=== PATIENT | male | born 1930 | race Hispanic/Latino ===

== ENCOUNTER → 2018-02-13 | Day surgery (SDC) | payer OTHER ==
[~2018-02-13] VITALS: Ht 167.6 cm; Wt 70.8 kg
[~2018-02-13] MED LIST: AMLODIPINE BESYL5 MG PO; ASPIRIN EC81 MG PO; BACTRIM DS TAB1 EACH PO; CEFAZOLIN SOD 1 GM VIAL ONE; DORZOLAMIDE HCL10 ML OP; FENTANYL CITRATE/PF 100MCG/2 ML INJ ONE; FERROUS SULFAT325 MG PO; LATANOPROST2.5 ML OP; LIDOCAINE HCL 2% LOCAL 20 ML VIAL ONE; LORATADINE10 MG PO; LOSARTAN POTASS25 MG PO; METFORMIN HCL500 MG PO; MIDAZOLAM HCL 2 MG/2 ML VIAL ONE; MYRBETRIQ50 MG PO; OMEPRAZOLE40 MG PO; SODIUM CHLORIDE 0.9% 500ML 1,000 ML ONE; SODIUM CHLORIDE 0.9% 50ML 50 ML ONE; TAMSULOSIN HCL0.4 MG PO
[2018-02-13 12:49] VITALS: BP 156/74
[2018-02-13 12:57] VITALS: BP 142/77
[2018-02-13 13:05] VITALS: BP 131/75
[2018-02-13 13:15] VITALS: BP_SYST 134; BP_SYST 150; BP_DIAS 71; BP_DIAS 74
--- NOTE | 2018-02-13 14:28 | Diagnostic Imaging Report ---
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 The patient's heart rate and pulse oximetry were continuously monitored by the interventional radiology nurse. Blood pressure was monitored at 5 minute intervals. Total sedation time: 30 minutes Additional Medications: Lidocaine 1% for local anesthesia, cefazolin 1 g intravenous Fluoroscopy time: 1.5 minutes Dose-area Product: 187.4 cGycm2. Contrast used: 20 cc Isovue-300 Estimated blood loss: Less than 10 cc Specimens: None Implants: 18 Scottish balloon retention hoopa-tip bladder catheter Blood products administered: None Condition at completion of procedure: Stable Disposition: Catheter lab holding area DISCUSSION: Informed consent was obtained and documented in the medical record after discussion of risks and benefits. The patient was placed in the supine position on the angiographic table and the lower abdomen was prepped and draped in the standard sterile fashion. Sterile saline was infused in a retrograde fashion through the indwelling Garcia catheter to achieve adequate bladder distention. A suitable percutaneous approach to the bladder was identified by sonography and 1% lidocaine was infiltrated into the skin and subcutaneous tissues for local anesthesia. Then under continuous sonographic guidance, an 18-gauge singlewall needle was used to access the urinary bladder by a midline approach. A permanent sonographic image was stored in the medical record. A 0.0 3 5-in. Amplatz Super Stiff wire was then advanced through the needle and coiled within the bladder under fluoroscopic guidance. The needle was removed over the wire and the tract was serially dilated, ultimately allowing a 22 Scottish peel-away sheath to be advanced over the wire and into the urinary bladder under fluoroscopic guidance. The dilator of the peel-away sheath was removed and an 18 Scottish [place] tip balloon retention bladder catheter was advanced over the wire and through the peel-away sheath, which was then broken and discarded. The wire was removed and the retention balloon was inflated with 10 cc sterile saline per frame cleaner guidelines. The catheter was retracted to appose the retention balloon with the anterior bladder wall. Injection of dilute contrast material confirmed appropriate positioning. The catheter was then flushed copiously with sterile saline and connected to gravity drainage. The catheter was secured to the skin with nonrestorable suture and a sterile dressing was applied. The patient tolerated the procedure well without immediate complication. The indwelling Garcia catheter was then removed by nursing staff. FINDINGS: Distended urinary bladder with Garcia catheter in position. IMPRESSION: Successful placement of a suprapubic bladder catheter (18 Scottish, balloon retention Hamilton tip) under sonographic and fluoroscopic guidance followed by removal of indwelling Garcia catheter.. Signed by: Dr. Alex Moctezuma M.D. on 02/13/2018 2:24 PM
--- NOTE | 2018-03-01 10:15 | Diagnostic Imaging Report ---
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 The patient's heart rate and pulse oximetry were continuously monitored by the interventional radiology nurse. Blood pressure was monitored at 5 minute intervals. Total sedation time: 30 minutes Additional Medications: Lidocaine 1% for local anesthesia, cefazolin 1 g intravenous Fluoroscopy time: 1.5 minutes Dose-area Product: 187.4 cGycm2. Contrast used: 20 cc Isovue-300 Estimated blood loss: Less than 10 cc Specimens: None Implants: 18 [place]an balloon retention [place]well-tip bladder catheter Blood products administered: None Condition at completion of procedure: Stable Disposition: Catheter lab holding area DISCUSSION: Informed consent was obtained and documented in the medical record after discussion of risks and benefits. The patient was placed in the supine position on the angiographic table and the lower abdomen was prepped and draped in the standard sterile fashion. Sterile saline was infused in a retrograde fashion through the indwelling Garcia catheter to achieve adequate bladder distention. A suitable percutaneous approach to the bladder was identified by sonography and 1% lidocaine was infiltrated into the skin and subcutaneous tissues for local anesthesia. Then under continuous sonographic guidance, an 18-gauge singlewall needle was used to access the urinary bladder by a midline approach. A permanent sonographic image was stored in the medical record. A 0.0 3 5-in. Amplatz Super Stiff wire was then advanced through the needle and coiled within the bladder under fluoroscopic guidance. The needle was removed over the wire and the tract was serially dilated, ultimately allowing a 22 [place]an peel-away sheath to be advanced over the wire and into the urinary bladder under fluoroscopic guidance. The dilator of the peel-away sheath was removed and an 18 [place] tip balloon retention bladder catheter was advanced over the wire and through the peel-away sheath, which was then broken and discarded. The wire was removed and the retention balloon was inflated with 10 cc sterile saline per beverage host guidelines. The catheter was retracted to appose the retention balloon with the anterior bladder wall. Injection of dilute contrast material confirmed appropriate positioning. The catheter was then flushed copiously with sterile saline and connected to gravity drainage. The catheter was secured to the skin with nonrestorable suture and a sterile dressing was applied. The patient tolerated the procedure well without immediate complication. The indwelling Garcia catheter was then removed by nursing staff. FINDINGS: Distended urinary bladder with Garcia catheter in position. IMPRESSION: Successful placement of a suprapubic bladder catheter (18 [place]an, balloon retention [place] tip) under sonographic and fluoroscopic guidance followed by removal of indwelling Garcia catheter.. Signed by: Dr. Alex Moctezuma M.D. on 02/13/2018 2:24 PM
--- OUTSIDE RECORDS SUMMARY | 2018-03-14 06:08 | XMS REPORT | Summary of Care ---
Author Author [facility] Organization [facility] Address Unknown Phone Unavailable Encounter LYNETTE Wright(NEO) [id number] Date(s): 03/25/15 - 03/25/15 [facility] [address] [place] [address] Discharge Disposition: Home Attending Physician: Henok Hawk DO Referring Physician: Henok Hawk DO Vital Signs No data available for this section Problem List Condition Effective Dates Status Health Status Informant BPH - Benign Active prostatic hypertrophy(Confirme d) Diabetes Active mellitus(Confirmed) Glaucoma(Confirmed) Active Hyperlipidemia(Confi Active rmed) Hypertension(Confirm Active ed) Melanoma Active foot(Confirmed) Reflux(Confirmed) Active Allergies, Adverse Reactions, Alerts Substance Reaction Severity Status NKDA Active Medications ceFAZolin 2 gm, 50 mL, Route: IVPB, Drug form: INJ, PRE OP, Start date: 03/27/15 5:00:00, Duration: 1 day, Stop date: 03/28/15 4:59:00 Start Date: 03/27/15 Stop Date: 03/28/15 Status: Ordered Ofirmev 1,000 mg, 100 mL, Route: IV, Drug form: INJ, PRE OP, Start date: 03/27/15 5:00: 00, Duration: 1 day, Stop date: 03/28/15 4:59:00 Notes: Infuse over 15 minutesDo not exceed 4gm/day of acetaminophen MEDICATION WASTE Product Size: 1000 mgProduct Wasted: ___ mg Start Date: 03/27/15 Stop Date: 03/28/15 Status: Ordered Results No data available for this section Immunizations No data available for this section Procedures Procedure Date Related Diagnosis Body Site Operation Social History Social History Type Response Smoking Status Never smoker; Exposure to Tobacco Smoke None; Cigarette Smoking Last 365 Days No; Reg Smoking Cessation Counseling No Assessment and Plan No data available for this section
--- OUTSIDE RECORDS SUMMARY | 2018-03-14 06:08 | XMS REPORT | Summary of Care ---
Author Author [facility] Outpatient Imaging [facility] Address Unknown Phone Unavailable Encounter HQ Encntr_alicandy(FIN) [id number] Date(s): 02/05/15 - 02/05/15 [facility] [address] [place] [phone] Discharge Disposition: Home Attending Physician: Redd Irwin MD Vital Signs No data available for this section Problem List No data available for this section Allergies, Adverse Reactions, Alerts Substance Reaction Severity Status NKDA Active Medications No data available for this section Results No data available for this section Immunizations No data available for this section Procedures No data available for this section Social History No data available for this section Assessment and Plan No data available for this section
--- OUTSIDE RECORDS SUMMARY | 2018-03-14 06:08 | XMS REPORT | Summary of Care ---
Author Author [facility] Organization [facility] Address Unknown Phone Unavailable Encounter [facility] Encntr_alicandy(NEO) [id number] Date(s): 01/20/15 - 01/20/15 [facility] [address] [place] [address]- [phone] Discharge Disposition: Home Attending Physician: Victoriano Elizalde MD Vital Signs No data available for [...]
--- OUTSIDE RECORDS SUMMARY | 2018-03-14 06:08 | XMS REPORT | Summary of Care ---
Author Author [facility] Organization [facility] Address Unknown Phone Unavailable Encounter LYNETTE Wright(NEO) [id number] Date(s): 03/26/15 - 03/30/15 [facility] [address] [employer] provided by [employer] [facility] [employer] [place] [address]- Discharge Disposition: Home Attending Physician: Henok Hawk DO Admitting Physician: Henok Hawk DO Referring Physician: Henok Hawk DO Vital Signs 1 2 3 Most recent to oldest [Reference Range]: 152.4 cm (03/17/15 2:16 PM) Height 1 2 3 Most recent to oldest [Reference Range]: 98.0 DegF (03/30/15 1:05 PM) 97.8 DegF (03/30/15 8:41 AM) 97.9 DegF (03/30/15 3:23 AM) Temperature Oral [96.4-99.1 DegF] 1 2 3 Most recent to oldest [Reference Range]: 167/68 mmHg *HI* (03/30/15 8:41 AM) 161/69 mmHg *HI* (03/30/15 3:23 AM) Blood Pressure [90-140/60-90 mmHg] 158 mmHg *HI* (03/30/15 1:05 PM) Systolic Blood Pressure [90-140 mmHg] 1 2 3 Most recent to oldest [Reference Range]: 74 mmHg (03/30/15 1:05 PM) Diastolic Blood Pressure [60-90 mmHg] 1 2 3 Most recent to oldest [Reference Range]: 18 BRMIN (03/30/15 1:05 PM) 20 BRMIN (03/30/15 8:41 AM) 18 BRMIN (03/30/15 3:23 AM) Respiratory Rate [14-20 BRMIN] 1 2 3 Most recent to oldest [Reference Range]: 81 bpm (03/30/15 1:05 PM) 61 bpm (03/30/15 8:41 AM) 60 bpm (03/30/15 3:23 AM) Peripheral Pulse Rate [60-100 bpm] 1 2 3 Most recent to oldest [Reference Range]: 73.636 kg (03/17/15 2:16 PM) Weight 1 2 3 Most recent to oldest [Reference Range]: 31.7 m2 (03/17/15 2:16 PM) Body Mass Index Problem List Condition Effective Dates Status Health Status Informant BPH - Benign Active prostatic hypertrophy(Confirme d) Diabetes Active mellitus(Confirmed) Glaucoma(Confirmed) Active Hyperlipidemia(Confi Active rmed) Hypertension(Confirm Active ed) Melanoma Active foot(Confirmed) Reflux(Confirmed) Active Allergies, Adverse Reactions, Alerts Substance Reaction Severity Status NKDA Active Medications acetaminophen-hydrocodone 325 mg-5 mg oral tablet 1 tab, Route: PO, Dosing Weight 73.636, kg, Q4H, PRN Pain Score 4-6, Start date : 03/26/15 11:55:00, Duration: 30 day, Stop date: 04/25/15 11:54:00 Start Date: 03/26/15 Stop Date: 03/26/15 Status: Discontinued bacitracin TOP, Daily, 0 Refill(s) Start Date: 03/17/15 Status: Ordered benzonatate 100 mg, 1 cap, Route: PO, Drug form: CAP, TID, Dosing Weight 73.636, kg, PRN Cough, Start date: 03/26/15 13:00:00, Duration: 30 day, Stop date: 04/25/15 11: 59:00 Notes: (Same As: Jerrod Lockhart)"Do Not Crush" Start Date: 03/26/15 Stop Date: 03/30/15 Status: Discontinued benzonatate 100 mg oral capsule 100 mg=1 cap, PO, TID, do not crush or chew, # 30 cap, 0 Refill(s) Special Instructions: do not crush or chew Start Date: 03/17/15 Stop Date: 03/27/15 Status: Ordered ceFAZolin 2 gm, 50 mL, Route: IVPB, Drug form: INJ, PRE OP, Start date: 03/26/15 2:00:00, Duration: 1 day, Stop date: 03/27/15 1:59:00 Start Date: 03/26/15 Stop Date: 03/26/15 Status: Deleted ceFAZolin 2 gm, 100 mL, Route: IVPB, Drug form: INJ, PRE OP, Start date: 03/26/15 6:00:00 , Duration: 1 day, Stop date: 03/27/15 5:59:00 Notes: Same as: Ancef Start Date: 03/26/15 Stop Date: 03/26/15 Status: Completed ciclopirox topical 0.77% cream 1 appl, TOP, BID, # 15 gm, 0 Refill(s) Start Date: 03/17/15 Stop Date: 04/14/15 Status: Ordered cyanocobalamin 100 microgram, 1 tab, Route: PO, Drug form: TAB, Daily, Dosing Weight 73.636, kg , Start date: 03/27/15 9:00:00, Duration: 30 day, Stop date: 04/25/15 9:00:00 Notes: (Same As: Vitamin B12) Start Date: 03/27/15 Stop Date: 03/30/15 Status: Discontinued Dextrose 50% Syringe 12.5 gm, 25 mL, Route: IVP, Drug Form: INJ, Dosing Weight 73.636, kg, PRN, PRN Blood Glucose Results, Start date: 03/26/15 12:04:00, Duration: 30 day, Stop date: 04/25/15 11:03:00 Start Date: 03/26/15 Stop Date: 03/30/15 Status: Discontinued Dextrose 50% Syringe 25 gm, 50 mL, Route: IVP, Drug Form: INJ, Dosing Weight 73.636, kg, PRN, PRN Blood Glucose Results, Start date: 03/26/15 12:04:00, Duration: 30 day, Stop date: 04/25/15 11:03:00 Start Date: 03/26/15 Stop Date: 03/30/15 Status: Discontinued docusate sodium 100 mg oral capsule 100 mg, 1 cap, Route: PO, Drug form: CAP, BID, Dosing Weight 73.636, kg, Start date: 03/26/15 17:00:00, Duration: 30 day, Stop date: 04/25/15 9:00:00 Notes: (Same as: Colace) (Do Not Crush) Start Date: 03/26/15 Stop Date: 03/30/15 Status: Discontinued dorzolamide-timolol ophthalmic BOTH EYES, BID, 0 Refill(s) Start Date: 03/17/15 Status: Ordered flumazenil 0.2 mg, Route: IVP, PRN, Dosing Weight 73.636, kg, PRN Benzodiazepine Reversal, Initial dose, Start date: 03/26/15 12:12:00, Duration: 30 day, Stop date: 11:11:00 Start Date: 03/26/15 Stop Date: 03/26/15 Status: Discontinued glucagon 1 mg, Route: IM, Drug form: PDR/INJ, PRN, Dosing Weight 73.636, kg, PRN Blood Glucose Results, Start date: 03/26/15 12:04:00, Duration: 30 day, Stop date: 11:03:00 Start Date: 03/26/15 Stop Date: 03/30/15 Status: Discontinued heparin 5,000 unit, 1 mL, Route: SUB-Q, Drug form: INJ, Q8H, Dosing Weight 73.636, kg, Start date: 03/26/15 16:00:00, Duration: 30 day, Stop date: 04/25/15 8:00:00 Notes: porcine heparin Start Date: 03/26/15 Stop Date: 03/30/15 Status: Discontinued hydrALAZINE 10 mg, 0.5 mL, Route: IV, Drug form: INJ, ONCE, Dosing Weight 73.636, kg, Start date: 03/26/15 22:01:00, Stop date: 03/26/15 22:01:00 Notes: (Same as: Apresoline)Push over 5 minutes Start Date: 03/26/15 Stop Date: 03/26/15 Status: Completed hydromorphone 0.3 mg, 0.15 mL, Route: IVP, Drug form: INJ, Q3H, Dosing Weight 73.636, kg, PRN Pain Score 7-10, Start date: 03/26/15 11:55:00, Stop date: 04/25/15 11:54:00 Notes: Same as: Dilaudid Start Date: 03/26/15 Stop Date: 03/30/15 Status: Discontinued Insulin regular 10 unit, 0.1 mL, Route: SUB-Q, Drug form: SOLN, TID-Before Meals, Dosing Weight 73.636, kg, PRN Blood Glucose Results, Start date: 03/26/15 12:04:00, Duration: 30 day, Stop date: 04/25/15 12:03:00 Notes: (Same as: Humulin R) Roll in palms of hands gently; Do not shake vigorously. "single patient use only"(Restricted to patients requiring a dose > 60 units) Stable for 28 days at room temperatureExpires in days from _ Date Start Date: 03/26/15 Stop Date: 03/30/15 Status: Discontinued Insulin regular 4 unit, 0.04 mL, Route: SUB-Q, Drug form: SOLN, TID-Before Meals, Dosing Weight 73.636, kg, PRN Blood Glucose Results, Start date: 03/26/15 12:04:00, Duration: 30 day, Stop date: 04/25/15 12:03:00 Notes: (Same as: Humulin R) Roll in palms of hands gently; Do not shake vigorously. "single patient use only"(Restricted to patients requiring a dose > 60 units) Stable for 28 days at room temperatureExpires in days from _ Date Start Date: 03/26/15 Stop Date: 03/30/15 Status: Discontinued Insulin regular 2 unit, 0.02 mL, Route: SUB-Q, Drug form: SOLN, TID-Before Meals, Dosing Weight 73.636, kg, PRN Blood Glucose Results, Start date: 03/26/15 12:04:00, Duration: 30 day, Stop date: 04/25/15 12:03:00 Notes: (Same as: Humulin R) Roll in palms of hands gently; Do not shake vigorously. "single patient use only"(Restricted to patients requiring a dose > 60 units) Stable for 28 days at room temperatureExpires in days from _ Date Start Date: 03/26/15 Stop Date: 03/30/15 Status: Discontinued Insulin regular 8 unit, 0.08 mL, Route: SUB-Q, Drug form: SOLN, TID-Before Meals, Dosing Weight 73.636, kg, PRN Blood Glucose Results, Start date: 03/26/15 12:04:00, Duration: 30 day, Stop date: 04/25/15 12:03:00 Notes: (Same as: Humulin R) Roll in palms of hands gently; Do not shake vigorously. "single patient use only"(Restricted to patients requiring a dose > 60 units) Stable for 28 days at room temperatureExpires in days from _ Date Start Date: 03/26/15 Stop Date: 03/30/15 Status: Discontinued Insulin regular 6 unit, 0.06 mL, Route: SUB-Q, Drug form: SOLN, TID-Before Meals, Dosing Weight 73.636, kg, PRN Blood Glucose Results, Start date: 03/26/15 12:04:00, Duration: 30 day, Stop date: 04/25/15 12:03:00 Notes: (Same as: Humulin R) Roll in palms of hands gently; Do not shake vigorously. "single patient use only"(Restricted to patients requiring a dose > 60 units) Stable for 28 days at room temperatureExpires in days from _ Date Start Date: 03/26/15 Stop Date: 03/30/15 Status: Discontinued Iron-150 oral tablet 1 tab, PO, Daily, 0 Refill(s) Start Date: 03/17/15 Status: Ordered Isolyte S PH 7.4 1,000 mL 1,000 mL, Rate: 50 ml/hr, Infuse over: 20 hr, Route: IV, Dosing Weight 73.636 kg , Total Volume: 1,000, Start date: 03/26/15 12:03:00, Stop date: 04/25/15 12:02: 00 Notes: (Same as: Isolyte S PH 7.4) Start Date: 03/26/15 Stop Date: 03/30/15 Status: Discontinued labetalol 10 mg, Route: IVP, Q5Min, Dosing Weight 73.636, kg, PRN Elevated BP, Start date : 03/26/15 12:12:00, Duration: 5 doses or times, Stop date: Limited # of times Start Date: 03/26/15 Stop Date: 03/26/15 Status: Discontinued latanoprost ophthalmic 0.005% solution 1 drp, BOTH EYES, Bedtime, # 1 btl, 1 Refill(s) Start Date: 03/17/15 Status: Ordered latanoprost ophthalmic 0.005% solution 1 drp, Route: BOTH EYES, Bedtime, Drug form: SOLN, Start date: 03/26/15 21:00:00 , Duration: 30 day, Stop date: 04/24/15 21:00:00 Notes: Keep refrigerated. (Same as:Xalatan) Start Date: 03/26/15 Stop Date: 03/30/15 Status: Discontinued Lipitor 10 mg, 1 tab, Route: PO, Drug form: TAB, Bedtime, Start date: 03/26/15 21:00:00 , Duration: 30 day, Stop date: 04/24/15 21:00:00 Notes: (Same As: Lipitor) Start Date: 03/26/15 Stop Date: 03/30/15 Status: Discontinued losartan 50 mg, 1 tab, Route: PO, Drug form: TAB, Daily, Dosing Weight 73.636, kg, Start date: 03/27/15 9:00:00, Duration: 30 day, Stop date: 04/25/15 9:00:00 Notes: (Same as: Cozaar) Start Date: 03/27/15 Stop Date: 03/30/15 Status: Discontinued losartan 50 mg oral tablet 50 mg=1 tab, PO, Daily, # 30 tab, 0 Refill(s) Start Date: 03/17/15 Status: Ordered lovastatin 10 mg, Route: PO, Drug form: TAB, Bedtime, Dosing Weight 73.636, kg, Start date : 03/26/15 21:00:00, Duration: 30 day, Stop date: 04/24/15 21:00:00 Start Date: 03/26/15 Stop Date: 03/26/15 Status: Deleted lovastatin 10 mg oral tablet 10 mg=1 tab, PO, Bedtime, # 30 tab, 0 Refill(s) Start Date: 03/17/15 Status: Ordered metFORMIN 500 mg oral tablet 500 mg, 1 tab, Route: PO, Drug form: TAB, TID-Meals, Dosing Weight 73.636, kg, Start date: 03/26/15 17:00:00, Duration: 30 day, Stop date: 04/25/15 12:00:00 Notes: (Same as: Glucophage) Take with meal Start Date: 03/26/15 Stop Date: 03/30/15 Status: Discontinued metFORMIN 500 mg oral tablet 500 mg=1 tab, PO, TID, 0 Refill(s) Start Date: 03/17/15 Status: Ordered morphine Sulfate 2 mg, Route: IVP, Q5Min, Dosing Weight 73.636, kg, PRN Pain Score 4-6, Start date: 03/26/15 12:12:00, Duration: 5 doses or times, Stop date: Limited # of times Start Date: 03/26/15 Stop Date: 03/26/15 Status: Discontinued Mucinex 600 mg, PO, Q12H, PRN Congestion, 0 Refill(s) Start Date: 03/17/15 Status: Ordered naloxone 0.04 mg, Route: IVP, Q2MIN, Dosing Weight 73.636, kg, PRN Narcotic Reversal, Start date: 03/26/15 12:12:00, Duration: 8 doses or times, Stop date: Limited # of times Start Date: 03/26/15 Stop Date: 03/26/15 Status: Discontinued Lodi 5/325 oral tablet 1 tab, Route: PO, Drug Form: TAB, Dosing Weight 73.636, kg, Q4H, PRN Pain Score 4-6, Start date: 03/26/15 12:03:00, Duration: 30 day, Stop date: 04/25/15 12:02: 00 Notes: (Same as: Lodi 325/5) Do not exceed 4gm/day of acetaminophen. Start Date: 03/26/15 Stop Date: 03/30/15 Status: Discontinued Ofirmev 1,000 mg, 100 mL, Route: IV, Drug form: INJ, PRE OP, Start date: 03/26/15 2:00: 00, Duration: 30 day, Stop date: 04/25/15 0:59:00 Notes: Infuse over 15 minutesDo not exceed 4gm/day of acetaminophen MEDICATION WASTE Product Size: 1000 mgProduct Wasted: ___ mg Start Date: 03/26/15 Stop Date: 03/30/15 Status: Discontinued omeprazole 20 mg, PO, BID, 0 Refill(s) Start Date: 03/17/15 Status: Ordered omeprazole 20 mg, Route: PO, BID, Dosing Weight 73.636, kg, Start date: 03/26/15 17:00:00, Duration: 30 day, Stop date: 04/25/15 9:00:00 Start Date: 03/26/15 Stop Date: 03/26/15 Status: Deleted ondansetron 4 mg, Route: IVP, ONCE, Dosing Weight 73.636, kg, PRN Nausea & Vomiting, Start date: 03/26/15 12:12:00 Start Date: 03/26/15 Stop Date: 03/26/15 Status: Discontinued oxybutynin 5 mg oral tablet 5 mg=1 tab, PO, TID, PRN Other-See Comments, # 30 tab, 0 Refill(s) Start Date: 03/17/15 Status: Ordered Protonix 40 mg, 1 tab, Route: PO, Drug form: ECTAB, BID, Start date: 03/26/15 17:00:00, Duration: 30 day, Stop date: 04/25/15 9:00:00 Notes: Tablet should not be chewed or crushed.(Same as: Protonix) Start Date: 03/26/15 Stop Date: 03/30/15 Status: Discontinued tamsulosin 0.4 mg, 1 cap, Route: PO, Drug form: CAP, Daily, Dosing Weight 73.636, kg, Start date: 03/27/15 9:00:00, Duration: 30 day, Stop date: 04/25/15 9:00:00 Notes: (Same As: Flomax) "Do Not Crush" Start Date: 03/27/15 Stop Date: 03/30/15 Status: Discontinued tamsulosin 0.4 mg oral capsule 0.4 mg=1 cap, PO, Daily, # 30 cap, 0 Refill(s) Start Date: 03/17/15 Status: Ordered tramadol 50 mg oral tablet 50 mg=1 tab, PO, BID, PRN Pain Score 4-6, # 30 tab, 0 Refill(s) Start Date: 03/30/15 Stop Date: 04/30/15 Status: Ordered tramadol 50 mg oral tablet 50 mg, 1 tab, Route: PO, Drug form: TAB, Q12H, Dosing Weight 73.636, kg, Start date: 03/26/15 21:00:00, Duration: 30 day, Stop date: 04/25/15 9:00:00 Notes: Not to exceed 400mg/day. (Same As: Ultram) Start Date: 03/26/15 Stop Date: 03/30/15 Status: Discontinued tramadol 50 mg oral tablet 50 mg=1 tab, PO, BID, # 30 tab, 0 Refill(s) Start Date: 03/17/15 Stop Date: 03/30/15 Status: Discontinued Tylenol with Codeine #4 oral tablet 1 - 2 tab, PO, Q6H, PRN Pain, X 10 day, # 32 tab, 0 Refill(s) Start Date: 03/29/15 Stop Date: 04/08/15 Status: Ordered urea 41% topical cream 1 appl, TOP, BID, 0 Refill(s) Start Date: 03/17/15 Status: Ordered Vitamin B-12 100 mcg oral tablet 100 microgram=1 tab, PO, Daily, # 30 tab, 0 Refill(s) Start Date: 03/17/15 Status: Ordered Results ELECTROLYTES Most recent to 1 2 oldest [Reference Range]: Sodium Lvl [135-145 141 mEq/L 136 mEq/L mEq/L] (03/27/15 3:45 AM) (03/17/15 12:30 PM) Potassium Lvl 3.9 mEq/L 4.9 mEq/L [3.5-5.1 mEq/L] (03/27/15 3:45 AM) (03/17/15 12:30 PM) Chloride Lvl [95-109 107 mEq/L 100 mEq/L mEq/L] (03/27/15 3:45 AM) (03/17/15 12:30 PM) CO2 [24-32 mEq/L] 24 mEq/L 28 mEq/L (03/27/15 3:45 AM) (03/17/15 12:30 PM) AGAP [10.0-20.0 13.9 mEq/L 12.9 mEq/L mEq/L] (03/27/15 3:45 AM) (03/17/15 12:30 PM) CHEM PANEL Most recent to 1 2 oldest [Reference Range]: Creatinine Lvl 0.9 mg/dL 1.1 mg/dL [0.5-1.4 mg/dL] (03/27/15 3:45 AM) (03/17/15 12:30 PM) eGFR 77 mL/min/1.73m2 1 63 mL/min/1.73m2 2 *NA* *NA* (03/27/15 3:45 AM) (03/17/15 12:30 PM) BUN [7-22 mg/dL] 12 mg/dL 13 mg/dL (03/27/15 3:45 AM) (03/17/15 12:30 PM) B/C Ratio [6-25] 12 (03/17/15 12:30 PM) Glucose Lvl [70-99 79 mg/dL 111 mg/dL mg/dL] (03/27/15 3:45 AM) *HI* (03/17/15 12:30 PM) Total Protein 7.1 g/dL [6.4-8.4 g/dL] (03/17/15 12:30 PM) Albumin Lvl [3.5-5.0 3.8 g/dL g/dL] (03/17/15 12:30 PM) Globulin [2.0-4.0 3.3 g/dL g/dL] (03/17/15 12:30 PM) A/G Ratio [0.7-1.6] 1.2 (03/17/15 12:30 PM) Calcium Lvl 8.9 mg/dL 8.6 mg/dL [8.5-10.5 mg/dL] (03/27/15 3:45 AM) (03/17/15 12:30 PM) ALT [0-65 unit/L] 19 unit/L (03/17/15 12:30 PM) AST [0-37 unit/L] 8 unit/L (03/17/15 12:30 PM) Alk Phos [39-136 115 unit/L unit/L] (03/17/15 12:30 PM) Bili Total [0.2-1.3 0.5 mg/dL mg/dL] (03/17/15 12:30 PM) 1Result Comment: The eGFR is calculated using the CKD-EPI formula. In most young , healthy individuals the eGFR will be >90 mL/min/1.73m2. The eGFR declines with age. An eGFR of 60-89 may be normal in some populations, particularly the elderly, for whom the CKD-EPI formula has not been extensively validated. Use of the eGFR is not recommended in the following populations: Individuals with unstable creatinine concentrations, including patients and those with serious co-morbid conditions. Patients with extremes in muscle mass or diet. The data above are obtained from the National Kidney Disease Education Program ( NKDEP) which additionally recommends that when the eGFR is used in patients with extremes of body mass index for purposes of drug dosing, the eGFR should be multiplied by the estimated BMI. 2Result Comment: The eGFR is calculated using the CKD-EPI formula. In most young , healthy individuals the eGFR will be >90 mL/min/1.73m2. The eGFR declines with age. An eGFR of 60-89 may be normal in some populations, particularly the elderly, for whom the CKD-EPI formula has not been extensively validated. Use of the eGFR is not recommended in the following populations: Individuals with unstable creatinine concentrations, including patients and those with serious co-morbid conditions. Patients with extremes in muscle mass or diet. The data above are obtained from the National Kidney Disease Education Program ( NKDEP) which additionally recommends that when the eGFR is used in patients with extremes of body mass index for purposes of drug dosing, the eGFR should be multiplied by the estimated BMI. SPECIAL CHEMISTRY Most recent to 1 2 oldest [Reference Range]: Hgb A1C [<=5.6 %] 6.2 % *HI* (03/17/15 12:30 PM) HEMATOLOGY Most recent to 1 2 oldest [Reference Range]: WBC [3.7-10.4 K/CMM] 6.0 K/CMM 6.2 K/CMM (03/27/15 3:45 AM) (03/17/15 12:30 PM) RBC [4.70-6.10 3.97 M/CMM 4.37 M/CMM M/CMM] *LOW* *LOW* (03/27/15 3:45 AM) (03/17/15 12:30 PM) Hgb [14.0-18.0 g/dL] 12.5 g/dL 13.7 g/dL *LOW* *LOW* (03/27/15 3:45 AM) (03/17/15 12:30 PM) Hct [42.0-54.0 %] 36.3 % 41.1 % *LOW* *LOW* (03/27/15 3:45 AM) (03/17/15 12:30 PM) MCV [80.0-94.0 fL] 91.4 fL 94.0 fL (03/27/15 3:45 AM) (03/17/15 12:30 PM) MCH [27.0-31.0 pg] 31.5 pg 31.3 pg *HI* *HI* (03/27/15 3:45 AM) (03/17/15 12:30 PM) MCHC [32.0-36.0 34.5 g/dL 33.3 g/dL g/dL] (03/27/15 3:45 AM) (03/17/15 12:30 PM) RDW [11.5-14.5 %] 12.5 % 12.8 % (03/27/15 3:45 AM) (03/17/15 12:30 PM) Platelet [133-450 200 K/CMM 222 K/CMM K/CMM] (03/27/15 3:45 AM) (03/17/15 12:30 PM) MPV [7.4-10.4 fL] 9.4 fL 9.5 fL (03/27/15 3:45 AM) (03/17/15 12:30 PM) Segs [45.0-75.0 %] 62.3 % 61.0 % (03/27/15 3:45 AM) (03/17/15 12:30 PM) Lymphocytes 25.4 % 26.1 % [20.0-40.0 %] (03/27/15 3:45 AM) (03/17/15 12:30 PM) Monocytes [2.0-12.0 9.7 % 10.3 % %] (03/27/15 3:45 AM) (03/17/15 12:30 PM) Eosinophils [0.0-4.0 2.1 % 2.3 % %] (03/27/15 3:45 AM) (03/17/15 12:30 PM) Basophils [0.0-1.0 0.5 % 0.3 % %] (03/27/15 3:45 AM) (03/17/15 12:30 PM) Segs-Bands # 3.7 K/CMM 3.8 K/CMM [1.5-8.1 K/CMM] (03/27/15 3:45 AM) (03/17/15 12:30 PM) Lymphocytes # 1.5 K/CMM 1.6 K/CMM [1.0-5.5 K/CMM] (03/27/15 3:45 AM) (03/17/15 12:30 PM) Monocytes # [0.0-0.8 0.6 K/CMM 0.6 K/CMM K/CMM] (03/27/15 3:45 AM) (03/17/15 12:30 PM) Eosinophils # 0.1 K/CMM 0.1 K/CMM [0.0-0.5 K/CMM] (03/27/15 3:45 AM) (03/17/15 12:30 PM) Immunizations No data available for this section Procedures Procedure Date Related Diagnosis Body Site Operation Social History Social History Type Response Smoking Status Never smoker; Exposure to Tobacco Smoke None; Cigarette Smoking Last 365 Days No; Reg Smoking Cessation Counseling No Assessment and Plan Extracted from: Title: Clinical Document Author: Davina Jarvis Date: 03/28/15 MD [facility] Progress Note Subjective: No complaints. No acute events overnight. Scheduled Meds (10): 03/26/15 atorvastatin (Lipitor) 10 mg PO Bedtime [Future Dose: 03/28/15 21:00] 03/27/15 cyanocobalamin 100 microgram PO Daily [eMAR Schedule: (03/28/15) 09:00] [Future Dose: 03/29/15 09:00] 03/26/15 docusate (docusate sodium 100 mg oral capsule) 100 mg PO BID [eMAR Schedule: (03/28/15) 09:00, 17:00] 03/26/15 heparin 5,000 unit SUB-Q Q8H [eMAR Schedule: (03/28/15) 00:00, 08:00, 16:00] 03/26/15 latanoprost ophthalmic (latanoprost ophthalmic 0.005% solution) 1 drp BOTH EYES Bedtime [Future Dose: 03/28/15 21:00] 03/27/15 losartan 50 mg PO Daily [eMAR Schedule: (03/28/15) 09:00] [Future Dose: 03/29/15 09:00] 03/26/15 metFORMIN (metFORMIN 500 mg oral tablet) 500 mg PO TID-Meals [Last Rescheduled Dt/Tm: 03/26/15 17:00:00] [eMAR Schedule: (03/28/15) 08:00, 12:00, 17:00] 03/26/15 pantoprazole (Protonix) 40 mg PO BID [eMAR Schedule: (03/28/15) 09:00, 17:00] 03/27/15 tamsulosin 0.4 mg PO Daily [eMAR Schedule: (03/28/15) 09:00] [Future Dose: 03/29/15 09:00] 03/26/15 tramadol (tramadol 50 mg oral tablet) 50 mg PO Q12H [Last Rescheduled Dt/Tm: 03/26/15 21:00:00] [eMAR Schedule: (03/28/15) 09:00] [Future Dose: 03/28/15 21:00] Unscheduled Meds (3): 03/26/15 acetaminophen (Ofirmev) 1,000 mg IV PRE OP 400 ml/hr 03/27/15 acetaminophen (Ofirmev) 1,000 mg IV PRE OP 400 ml/hr 03/27/15 ceFAZolin 2 gm IVPB PRE OP 100 ml/hr PRN Meds (11): 03/26/15 Dextrose 50% in Water IV (Dextrose 50% Syringe) 12.5 gm IVP PRN 03/26/15 Dextrose 50% in Water IV (Dextrose 50% Syringe) 25 gm IVP PRN 03/26/15 Insulin regular 2 unit SUB-Q TID-Before Meals 03/26/15 Insulin regular 4 unit SUB-Q TID-Before Meals 03/26/15 Insulin regular 6 unit SUB-Q TID-Before Meals 03/26/15 Insulin regular 8 unit SUB-Q TID-Before Meals 03/26/15 Insulin regular 10 unit SUB-Q TID-Before Meals 03/26/15 acetaminophen-hydrocodone (Lodi 5/325 oral tablet) 1 tab PO Q4H 03/26/15 benzonatate 100 mg PO TID 03/26/15 glucagon 1 mg IM PRN 03/26/15 hydromorphone 0.3 mg IVP Q3H One Time Meds (1): 03/26/15 (Completed) hydrALAZINE 10 mg IV ONCE Continuous Infusions (1): 03/26/15 Electrolyte Solution 1,000 mL (Isolyte S PH 7.4 1,000 mL) 1,000 mL 50 ml/hr Objective: Vitals and Temp: VitalsTmp(F)[id number] 03/28 04:[id number]--- 03/28 00:[id number]--- 03/27 20:[id number]--- 03/27 17:[id number]--- 03/27 13:[id number]--- 24 Hr Tmax: 98.1F (36.72c) at 03/28 04:12Vital Signs are the last 5 in the past 48 hours. Physical Exam Gen: NAD Pulm: nonlabored respirations CV: regular rate and rhythm Abd: soft, nontender, nondistended R Foot: wound VAC in place. 24hr Labs 03/27 2120 Glucose POC95 03/27 1647 Glucose POC85 03/27 1228 Glucose [id number] H 03/27 0839 Glucose POC95 Assessment/Plan: 85 y.o. M with melanoma s/p wide local excision of R foot, SLNB, and wound vac placement ( 03/26/15) - pain well controlled - tolerating regular diet - good UOP - Dispo: pending Home Health for wound VAC exchanges, PT, wheelchair, shower chair
--- OUTSIDE RECORDS SUMMARY | 2018-03-14 06:08 | XMS REPORT | Summary of Care ---
Author Author [facility] Organization [facility] Address Unknown Phone Unavailable Encounter LYNETTE Wright(NEO) [id number] Date(s): 05/12/15 - 05/13/15 [facility] [address] [employer] provided by [employer] [facility] [place] [address]- Discharge Disposition: Home Attending Physician: Fela Stephen MD Admitting Physician: Fela Stephen MD Referring Physician: Fela Stephen MD Vital Signs 1 2 3 Most recent to oldest [Reference Range]: 160.02 cm (05/12/15 9:40 PM) 167.64 cm (05/12/15 10:05 AM) Height 97.5 DegF (05/13/15 11:59 AM) 97.8 DegF (05/13/15 8:42 AM) 97.9 DegF (05/13/15 4:45 AM) Temperature Oral [96.4-99.1 DegF] 104/49 mmHg (05/13/15 11:59 AM) 126/80 mmHg (05/13/15 8:42 AM) 104/53 mmHg (05/13/15 4:45 AM) Blood Pressure [90-140/60-90 mmHg] 18 BRMIN (05/13/15 11:59 AM) 18 BRMIN (05/13/15 8:42 AM) 18 BRMIN (05/13/15 4:45 AM) Respiratory Rate [14-20 BRMIN] 53 bpm *LOW* (05/13/15 11:59 AM) 65 bpm (05/13/15 8:42 AM) 62 bpm (05/13/15 4:45 AM) Peripheral Pulse Rate [60-100 bpm] 71.364 kg (05/12/15 9:40 PM) 63.636 kg (05/12/15 10:05 AM) Weight 27.87 m2 (05/12/15 9:40 PM) 22.64 m2 (05/12/15 10:05 AM) Body Mass Index Problem List Condition Effective Dates Status Health Status Informant BPH - Benign Active prostatic hypertrophy(Confirme d) Diabetes Active mellitus(Confirmed) Glaucoma(Confirmed) Active Hyperlipidemia(Confi Active rmed) Hypertension(Confirm Active ed) Melanoma Active foot(Confirmed) Reflux(Confirmed) Active Allergies, Adverse Reactions, Alerts Substance Reaction Severity Status NKDA Active Medications acetaminophen 650 mg, 2 tab, Route: PO, Drug form: TAB, Q6H, Dosing Weight 63.636, kg, Start date: 05/12/15 18:00:00, Duration: 30 day, Stop date: 06/11/15 12:00:00 Notes: Do not exceed 4 gm/day. (Same as: Tylenol) Start Date: 05/12/15 Stop Date: 05/13/15 Status: Discontinued acetaminophen-codeine #3 1 tab, Route: PO, Drug Form: TAB, Dosing Weight 63.636, kg, Q4H, PRN Pain Score 4-6, Start date: 05/12/15 16:59:00, Duration: 30 day, Stop date: 06/11/15 16:58: 00 Notes: Do not exceed 4gm/day of acetaminophen. (Same as: Tylenol with Codeine # 3) Start Date: 05/12/15 Stop Date: 05/13/15 Status: Discontinued Al hydroxide/Mg hydroxide/simethicone 200 mg-200 mg-20 mg/5 mL oral suspension 30 mL, Route: PO, Drug Form: SUSP, Dosing Weight 63.636, kg, Q4H, PRN Indigestion, Start date: 05/12/15 16:59:00, Duration: 30 day, Stop date: 16:58:00 Notes: (aluminum hydroxide-magnesium hyd-simethicone 900-223-96dl/5ml 30 ml ud ANYI) Start Date: 05/12/15 Stop Date: 05/13/15 Status: Discontinued Ancef 2 gm, Route: IVPB, ONCE, Dosing Weight 63.636, kg, Start date: 05/12/15 14:39:00 , Duration: 1 doses or times, Stop date: 05/12/15 14:39:00, Surgical Prophylaxis Only; For patients < 120 kg Start Date: 05/12/15 Stop Date: 05/12/15 Status: Completed ceFAZolin 2 gm, 100 mL, Route: IVPB, Drug form: INJ, PRE OP, Priority: STAT, Start date: 05/12/15 6:30:00, Duration: 1 day, Stop date: 05/13/15 6:29:00 Notes: Same as: Ancef Start Date: 05/12/15 Stop Date: 05/13/15 Status: Discontinued ceFAZolin (SCIP) 1 gm, Route: IVPB, Drug form: PDR/INJ, ABXQ8H, Dosing Weight 63.636, kg, Start date: 05/12/15 22:00:00, Duration: 3 doses or times, Stop date: 05/13/15 14:00: 00 Notes: (Same As: Luis, Gabriela) MEDICATION WASTE Product Size: 1000 mgProduct Wasted: ___ mg Start Date: 05/12/15 Stop Date: 05/13/15 Status: Pending Complete docusate sodium 100 mg oral capsule 100 mg, 1 cap, Route: PO, Drug form: CAP, BID, Dosing Weight 63.636, kg, Start date: 05/12/15 17:00:00, Duration: 30 day, Stop date: 06/11/15 9:00:00 Notes: (Same as: Colace) (Do Not Crush) Start Date: 05/12/15 Stop Date: 05/13/15 Status: Discontinued dorzolamide-timolol ophthalmic Route: BOTH EYES, BID, Drug form: SOLN, Start date: 05/12/15 17:00:00, Duration : 30 day, Stop date: 06/11/15 9:00:00 Notes: (Same as: Cosopt) Start Date: 05/12/15 Stop Date: 05/13/15 Status: Discontinued gabapentin 100 mg, 1 cap, Route: PO, Drug form: CAP, Q8Hnow, Dosing Weight 63.636, kg, Start date: 05/12/15 18:00:00, Duration: 30 day, Stop date: 06/11/15 10:00:00 Notes: (Same as: Neurontin) Start Date: 05/12/15 Stop Date: 05/13/15 Status: Discontinued latanoprost ophthalmic 0.005% solution 1 drp, Route: BOTH EYES, Bedtime, Drug form: SOLN, Start date: 05/12/15 21:00:00 , Duration: 30 day, Stop date: 06/10/15 21:00:00 Notes: Keep refrigerated. (Same as:Xalatan) Start Date: 05/12/15 Stop Date: 05/13/15 Status: Discontinued losartan 50 mg, 1 tab, Route: PO, Drug form: TAB, Daily, Dosing Weight 63.636, kg, Start date: 05/13/15 9:00:00, Duration: 30 day, Stop date: 06/11/15 9:00:00 Notes: (Same as: Katy) Start Date: 05/13/15 Stop Date: 05/13/15 Status: Discontinued Randolph 10/325 oral tablet 1 tab, PO, Q6H, 0 Refill(s) Start Date: 05/12/15 Status: Ordered Ofirmev 1,000 mg, 100 mL, Route: IV, Drug form: INJ, PRE OP, Priority: STAT, Start date : 05/12/15 6:30:00, Duration: 1 day, Stop date: 05/13/15 6:29:00 Notes: Infuse over 15 minutesDo not exceed 4gm/day of acetaminophen MEDICATION WASTE Product Size: 1000 mgProduct Wasted: ___ mg Start Date: 05/12/15 Stop Date: 05/13/15 Status: Discontinued Ofirmev 1,000 mg, 100 mL, Route: IV, Drug form: INJ, PRE OP, Start date: 05/12/15 16:00: 00, Duration: 1 day, Stop date: 05/13/15 15:59:00 Notes: Infuse over 15 minutesDo not exceed 4gm/day of acetaminophen MEDICATION WASTE Product Size: 1000 mgProduct Wasted: ___ mg Start Date: 05/12/15 Stop Date: 05/13/15 Status: Discontinued omeprazole 20 mg, Route: PO, BID, Dosing Weight 63.636, kg, Start date: 05/12/15 17:00:00, Duration: 30 day, Stop date: 06/11/15 9:00:00 Start Date: 05/12/15 Stop Date: 05/12/15 Status: Deleted ondansetron 4 mg, 2 mL, Route: IVP, Drug form: INJ, Q6H, Dosing Weight 63.636, kg, PRN Nausea & Vomiting, Start date: 05/12/15 16:59:00, Duration: 30 day, Stop date: 06/11/15 16:58:00 Notes: (Same as: Laura) MEDICATION WASTE Product Size: 4 mgProduct Wasted: ___ mg Start Date: 05/12/15 Stop Date: 05/13/15 Status: Discontinued oxyCODONE 5 mg immediate release 5 mg, 1 tab, Route: PO, Drug form: TAB, Q6H, Dosing Weight 63.636, kg, PRN Pain Score 6-10, Start date: 05/12/15 17:05:00, Duration: 30 day, Stop date: 17:04:00 Notes: (Same as: Roxicodone) Start Date: 05/12/15 Stop Date: 05/13/15 Status: Discontinued Protonix 40 mg, 1 tab, Route: PO, Drug form: ECTAB, BID-Before Meals, Start date: 19:30:00, Duration: 30 day, Stop date: 06/11/15 16:30:00 Notes: Tablet should not be chewed or crushed.(Same as: Protonix) Start Date: 05/12/15 Stop Date: 05/13/15 Status: Discontinued Saline Flush 0.9% 10 ml, Route: IVP, Drug Form: INJ, Dosing Weight 63.636, kg, Q12H, Start date: 05/12/15 21:00:00, Duration: 30 day, Stop date: 06/11/15 9:00:00 Notes: (Same as: BD Posiflush) Start Date: 05/12/15 Stop Date: 05/13/15 Status: Discontinued Saline Flush 0.9% 10 ml, Route: IVP, Drug Form: INJ, Dosing Weight 63.636, kg, PRN, PRN Line Flush , Start date: 05/12/15 16:59:00, Duration: 30 day, Stop date: 06/11/15 16:58:00 Notes: (Same as: BD Posiflush) Start Date: 05/12/15 Stop Date: 05/13/15 Status: Discontinued scopolamine 1 patch, Route: TOP, Drug form: ERFILM, PRE OP, Priority: STAT, Start date: 07/26 6:30:00, Duration: 1 day, Stop date: 05/13/15 6:29:00 Notes: Change patch every 72 hours (Same as: Transderm-Scop) Start Date: 05/12/15 Stop Date: 05/12/15 Status: Completed tamsulosin 0.4 mg, 1 cap, Route: PO, Drug form: CAP, Daily, Dosing Weight 63.636, kg, Start date: 05/13/15 9:00:00, Duration: 30 day, Stop date: 06/11/15 9:00:00 Notes: (Same As: Flomax) "Do Not Crush" Start Date: 05/13/15 Stop Date: 05/13/15 Status: Discontinued tramadol 50 mg, 1 tab, Route: PO, Drug form: TAB, Q8H, Dosing Weight 63.636, kg, PRN Pain Score 1-5, Start date: 05/12/15 17:05:00, Duration: 30 day, Stop date: 06/26 17:04:00 Notes: Not to exceed 400mg/day. (Same As: Ultram) Start Date: 05/12/15 Stop Date: 05/13/15 Status: Discontinued tramadol 50 mg oral tablet 50 mg=1 tab, PO, Q6H, PRN Pain, X 10 day, # 40 tab, 0 Refill(s) Start Date: 05/13/15 Stop Date: 05/23/15 Status: Ordered Tylenol PO, 0 Refill(s) Start Date: 05/12/15 Status: Ordered Results ELECTROLYTES Most recent to 1 oldest [Reference Range]: Sodium Lvl [135-145 132 mEq/L mEq/L] *LOW* (05/12/15 10:16 AM) Potassium Lvl 4.6 mEq/L 1 [3.5-5.1 mEq/L] (05/12/15 10:16 AM) Chloride Lvl [95-109 100 mEq/L mEq/L] (05/12/15 10:16 AM) CO2 [24-32 mEq/L] 22 mEq/L *LOW* (05/12/15 10:16 AM) AGAP [10.0-20.0 14.6 mEq/L mEq/L] (05/12/15 10:16 AM) 1Result Comment: Specimen Moderately Hemolyzed. CHEM PANEL Most recent to 1 oldest [Reference Range]: Creatinine Lvl 1.21 mg/dL [0.50-1.40 mg/dL] (05/12/15 10:16 AM) eGFR 54 mL/min/1.73m2 1 *NA* (05/12/15 10:16 AM) BUN [7-22 mg/dL] 21 mg/dL (05/12/15 10:16 AM) B/C Ratio [6-25] 17 (05/12/15 10:16 AM) Glucose Lvl [70-99 104 mg/dL mg/dL] *HI* (05/12/15 10:16 AM) Total Protein 8.0 g/dL [6.4-8.4 g/dL] (05/12/15 10:16 AM) Albumin Lvl [3.5-5.0 3.2 g/dL g/dL] *LOW* (05/12/15 10:16 AM) Globulin [2.0-4.0 4.8 g/dL g/dL] *HI* (05/12/15 10:16 AM) A/G Ratio [0.7-1.6] 0.7 (05/12/15 10:16 AM) Calcium Lvl 8.6 mg/dL [8.5-10.5 mg/dL] (05/12/15 10:16 AM) ALT [0-65 unit/L] 37 unit/L (05/12/15 10:16 AM) AST [0-37 unit/L] 42 unit/L *HI* (05/12/15 10:16 AM) Alk Phos [39-136 181 unit/L unit/L] *HI* (05/12/15 10:16 AM) Bili Total [0.2-1.3 1.3 mg/dL mg/dL] (05/12/15 10:16 AM) 1Result Comment: The eGFR is calculated using [...] should be multiplied by the estimated BMI. HEMATOLOGY Most recent to 1 oldest [Reference Range]: WBC [3.7-10.4 K/CMM] 6.6 K/CMM (05/12/15 10:16 AM) RBC [4.70-6.10 3.72 M/CMM M/CMM] *LOW* (05/12/15 10:16 AM) Hgb [14.0-18.0 g/dL] 11.4 g/dL *LOW* (05/12/15 10:16 AM) Hct [42.0-54.0 %] 34.0 % *LOW* (05/12/15 10:16 AM) MCV [80.0-94.0 fL] 91.4 fL (05/12/15 10:16 AM) MCH [27.0-31.0 pg] 30.7 pg (05/12/15:16 AM) MCHC [32.0-36.0 33.6 g/dL g/dL] (05/12/15 10:16 AM) RDW [11.5-14.5 %] 13.4 % (05/12/15 10:16 AM) Platelet [133-450 235 K/CMM K/CMM] (05/12/15 10:16 AM) MPV [7.4-10.4 fL] 8.8 fL (05/12/15 10:16 AM) Segs [45.0-75.0 %] 58.7 % (05/12/15 10:16 AM) Lymphocytes 24.3 % [20.0-40.0 %] (05/12/15 10:16 AM) Monocytes [2.0-12.0 13.8 % %] *HI* (05/12/15 10:16 AM) Eosinophils [0.0-4.0 2.5 % %] (05/12/15 10:16 AM) Basophils [0.0-1.0 0.7 % %] (05/12/15 10:16 AM) Segs-Bands # 3.9 K/CMM [1.5-8.1 K/CMM] (05/12/15 10:16 AM) Lymphocytes # 1.6 K/CMM [1.0-5.5 K/CMM] (05/12/15 10:16 AM) Monocytes # [0.0-0.8 0.9 K/CMM K/CMM] *HI* (05/12/15 10:16 AM) Eosinophils # 0.2 K/CMM [0.0-0.5 K/CMM] (05/12/15 10:16 AM) Immunizations No data available for this section Procedures Procedure Date Related Diagnosis Body Site Operation Social History Social History Type Response Smoking Status Never smoker; Exposure to Tobacco Smoke None; Cigarette Smoking Last 365 Days No; Reg Smoking Cessation Counseling No Assessment and Plan No data available for this section
--- OUTSIDE RECORDS SUMMARY | 2018-03-14 06:08 | XMS REPORT | Summary of Care ---
Author Author [facility] Outpatient Imaging [facility] Outpatient Imaging [facility] Address Unknown Phone Unavailable Encounter HQ Adriana(FIN) [id number] Date(s): 05/28/17 - 05/28/17 [facility] [address] [address], [address] [place] [phone] Discharge Disposition: Home or Self Care Attending Physician: Alberto Hess MD Vital Signs No data available for [...] Procedures Procedure Date Related Diagnosis Body Site Debridement Irrigation Operation Operation Social History Social History Type Response Substance Abuse Use: None. Employment/School Status: Retired. Alcohol Current, Type Beer, Liquor. Frequency: 1-2 times per month. Alcohol use interferes with work or home: No. Drinks more than intended: No. Others hurt by drinking: No. Ready to change: No. Household alcohol concerns: No. Smoking Status Former smoker; Exposure to Tobacco Smoke None; Cigarette Smoking Last 365 Days No; Reg Smoking Cessation Counseling No1 1quit around 50 yrs ago Assessment and Plan No data available for this section
--- OUTSIDE RECORDS SUMMARY | 2018-03-14 06:08 | XMS REPORT | Summary of Care ---
Author Author [facility] Organization [facility] Address Unknown Phone Unavailable Encounter HQ Encntr_alicandy(NEO) [id number] Date(s): 02/03/15 - 02/03/15 [facility] [address] [place] [address] [phone] Discharge Disposition: Home Attending Physician: Victoriano Elizalde [...]
--- OUTSIDE RECORDS SUMMARY | 2018-03-14 06:08 | XMS REPORT | Summary of Care ---
Author Author [facility] Outpatient Imaging [facility] Outpatient Imaging [facility] Address Unknown Phone Unavailable Encounter LYNETTE Wright(FIN) [id number] Date(s): 01/08/17 - 01/08/17 [facility] Outpatient Imaging [facility] [address] [address], [address] [place] [phone] Discharge Disposition: Home or Self Care Attending [...]
--- OUTSIDE RECORDS SUMMARY | 2018-03-14 06:08 | XMS REPORT | Continuity of Care Document ---
Author Author Interface Organization Interface Address Unknown Phone Unavailable Problems Problem Status Onset Date Classification Date Reported Comments Source PAD Active 04/20/2016 [facility] C43.9 - "MALIGNANT MELANOMA OF SKIN, UN" Active [facility]03[facility] FOOT PROBLE[facility] Active 2014 [facility] MELANOMA RIGHT FOOT Active [facility] MELENOMA RIGHT FOOT Active [facility] VENTRAL HERNIA Active 2014 [facility] 172.7 - MALIG MELANOMA Active 02/01/[address] 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 Diabetes mellitus Active Problem 05/31/2017 [facility] Glaucoma Active Problem 05/31/2017 [facility] Hyperlipidemia Active Problem 05/31/2017 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 [facility] VENTRAL HERNIA WITHOUT OBSTRUCTION OR GA Active [facility] MALIGNANT MELANOMA OF RIGHT LOWER LIMB, Active [facility] PERIPHERAL VASCULAR DISEASE, UNSPECIFIED Active [facility] Medications Medication Details Route Status Patient Instructions Ordering Provider Order Date Source tramadol hydrochloride 50 MG Oral Tablet [Ultram] 50 mg=1 tab, PO, Q4H, PRN pain, X 3 day, # 20 tab, 0 Refill(s) Active 05/01/2016 [facility] Aspirin 81 MG Enteric Coated Tablet 81 mg=1 tab, PO, Daily, # 90 tab, 3 Refill(s) Active 05/01/2016 [facility] Aspirin 81 mg, Route: PO, Drug form: ECTAB, ONCE, Dosing Weight 75.091, kg, Start date: 05/01/16 10:10:00 FULFILLMENT MAIL CLERK, Stop date: 10:10:00 FULFILLMENT MAIL CLERK Inactive 2015 [facility] protamine (ANES) Route: IV, Drug form: INJ, ONCE, Stop date: 05/01/16 9:54:00 FULFILLMENT MAIL CLERK Inactive 05/01/2016 [facility] Ondansetron 4 mg, 2 mL, Route: IVP, Drug form: INJ, ONCE, Dosing Weight 75.091, kg, PRN Nausea & Vomiting, Start date: 05/01/16 9:15 :00 CSTNotes: (Same as: Zofran) MEDICATION WASTE Product Size: 4 mg Product Wasted: ___ mg No Longer Active 05/01/2016 [facility] Acetaminophen 1,000 mg, 2 tab, Route: PO, Drug form: TAB, ONCE, Dosing Weight 75.091, kg, PRN Pain Score 1-3, Start date: 05/01/16 9: 15:00 FULFILLMENT MAIL CLERK, Duration: 1 doses or times, Stop date: Limited # of timesNotes: Max acetaminophen 4000 mg/day (4 gm/day). (Same as: Tylenol Extra Strength) No Longer Active 05/01/2016 [facility] Naloxone 0.4 mg, 1 mL, Route: IVP, Drug form: INJ, Q2MIN, Dosing Weight 75.091, kg, PRN Narcotic Reversal, Start date: 05/01/16 9: 15:00 FULFILLMENT MAIL CLERK, Duration: 8 doses or times, Stop date: 05/02/16 0:00:00 CSTNotes: Same as Narcan No Longer Active 05/01/2016 [facility] Flumazenil 0.2 mg, 2 mL, Route: IVP, Drug form: INJ, PRN, Dosing Weight 75.091, kg, PRN Benzodiazepine Reversal, Initial dose, Start date: 05/01/16 9:15:00 FULFILLMENT MAIL CLERK, Duration: 1 day, Stop date: 05/02/16 9:14:00 CSTNotes: (Same as: Romazicon) No Longer Active 05/01/2016 [facility] Hydralazine 10 mg, 0.5 mL, Route: IVP, Drug form: INJ , Q20Min, Dosing Weight 75.091, kg, PRN Elevated BP, Start date: 05/01/16 9:15: 00 FULFILLMENT MAIL CLERK, Duration: 2 doses or times, Stop date: Limited # of timesNotes: (Same as : Apresoline) Push over 5 minutes No Longer Active 05/01/2016 [facility] Sodium Chloride 0.154 MEQ/ML Injectable Solution 1, 000 mL, Rate: 125 ml/hr, Infuse over: 8 hr, Route: IV, Dosing Weight 75.091 kg, Total Volume: 1,000, Start date: 05/01/16 9:15:00 FULFILLMENT MAIL CLERK, Duration: 30 day, Stop date: 05/31/16 9:14:00 FULFILLMENT MAIL CLERK No Longer Active 05/01/2016 [facility] heparin (ANES) Route: IV, Drug form: INJ, ONCE, Stop date: 05/01/16 8:48:00 FULFILLMENT MAIL CLERK Inactive 05/01/2016 [facility] ceFAZolin (ANES) Route: IV, Drug form: INJ, ONCE, Stop date: 05/01/16 8:33:00 FULFILLMENT MAIL CLERK Inactive 05/01/2016 [facility] propofol (ANES) Route: IV, Drug form: INJ, ONCE, Stop date: 05/01/16 8:33:00 FULFILLMENT MAIL CLERK Inactive 05/01/2016 [facility] fentaNYL (ANES) Route: IV, Drug form: INJ, ONCE, Stop date: 05/01/16 8:33:00 FULFILLMENT MAIL CLERK Inactive 05/01/2016 [facility] dexmedetomidine (ANES) (ANES) Route: IV, Drug form: INJ, Start date: 05/01/16 7:37:00 FULFILLMENT MAIL CLERK, Stop date: 05/01/16 8:37:00 FULFILLMENT MAIL CLERK Inactive 05/01/2016 [facility] Isolyte S (PH 7.4) 1000 mL (ANES) Route: IV, Total Volume: 1,000, Start date: 05/01/16 7:35:00 FULFILLMENT MAIL CLERK, Stop date: 05/01/16 8:35:00 FULFILLMENT MAIL CLERK Inactive 05/01/2016 [facility] oxybutynin 5 mg oral tablet 5 mg=1 tab, PO, TID, 0 Refill(s) Active 05/01/2016 [facility] naproxen 375 mg oral enteric coated delayed-release tablet 375 mg=1 tab, PO, BID, PRN, 0 Refill(s) Active 05/01/2016 [facility] 24 HR mirabegron 50 MG Extended Release Tablet [Myrbetriq] 50 mg=1 tab, PO, Daily, # 30 tab, 0 Refill(s) Active 05/01/2016 [facility] ferrous gluconate 256 mg (28 mg elemental iron) oral tablet 256 mg=1 tab, PO, Daily, 0 Refill(s) Active 05/01/2016 [facility] fexofenadine 180 mg oral tablet 180 mg=1 tab, PO, Daily, 0 Refill(s) Active 05/01 [facility] sodium chloride 0.9% 1000 ml INJ 1,000 mL 1,000 mL, Rate: 10 cc/hrTitrate, Dosing Weight 75.091, kg, Route: IV, Total Volume: 1,000 , Start Date: 05/01/16 6:05:00 FULFILLMENT MAIL CLERK, Duration: 30 day, Stop date: 05/31/16 6:04: 00 FULFILLMENT MAIL CLERK, Replace Every: 24 hr No Longer Active 05/01/2016 [facility] polyethylene glycol 3350 oral powder for reconstitution 17 gm, PO, Daily, X 7 day, # 12 ea, 0 Refill(s) Active 06/22/2015 [facility] gabapentin 100 MG Oral Capsule 100 mg=1 cap, PO, Q8Hnow, # 90 cap, 0 Refill(s) Active 06/22/2015 [facility] Docusate Sodium 100 MG Oral Capsule [Colace] 100 mg=1 cap, PO, BID, # 20 cap, 0 Refill(s) Active 06/22/2015 [facility] ciprofloxacin 500 mg oral tablet 500 mg=1 tab, PO, Q12H, X 5 day, # 10 tab, 0 Refill(s) Active 06/22/2015 [facility] Acetaminophen 300 MG / Codeine Phosphate 30 MG Oral Tablet [Tylenol with Codeine #3] 1 tab, PO, Q4H, PRN Pain Score 1-3, X 10 day, # 60 tab, 0 Refill(s) Active 06/22/2015 [facility] GI cocktail 30 ml, Route: PO, Drug Form: SUSP, Dosing Weight 77.273, kg, ONCE, Routine, Start date: 06/21/15 17:00:00, Stop date: 04/26 17:00:00Notes: G.I. Cocktail=antacid with simethicone 22.5 mL - lidocaine viscous 7.5 mL Inactive 2015 [facility] GI cocktail 30 ml, Route: PO, Drug Form: SUSP, Dosing Weight 77.273, kg, ONCE, Routine, Start date: 06/21/15 14:40:00, Stop date: 04/26 14:40:00Notes: G.I. Cocktail=antacid with simethicone 22.5 mL - lidocaine viscous 7.5 mL Inactive 2015 [facility] Ancef + Sodium Chloride 0.9% IV 100 mL 2 gm, Route: IVPB, ABXQ8H, Dosing Weight 77.273, kg, Start date: 06/21/15 10:00:00, Duration : 30 day, Stop date: 07/21/15 2:00:00Notes: (Same As: Gabriela Smith) MEDICATION WASTE Product Size: 1000 mg Product Wasted: ___ mg No Longer Active 06/21/2015 [facility] Miralax 17 gm, 1 pkt, Route: PO, Drug form: PWDR, Daily, Dosing Weight 77.273, kg, Start date: 06/21/15 9:00:00, Duration: 30 day , Stop date: 07/20/15 9:00:00Notes: Dissolve in 8 oz of water or juice. (Same as : Miralax) No Longer Active 04/2016 [facility] Acetaminophen 300 MG / Codeine Phosphate 30 MG Oral Tablet [Tylenol with Codeine #3] 2 tab, Route: PO, Drug Form: TAB, Dosing Weight 77.273, kg, Q6H, PRN Pain Score 4-6, Start date: 06/21/15 5:33:00, Duration: 30 day, Stop date: 07/21/15 5:32:00Notes: Do not exceed 4gm/day of acetaminophen. (Same as: Tylenol with Codeine # 3) No Longer Active 06/21/2015 [facility] Bisacodyl 10 mg, 1 supp, Route: LA, Drug form: SUPP, ONCE, Dosing Weight 77.273, kg, Start date: 06/20/15 14:00:00, Stop date: 14:00:00Notes: (Same As: Dulcolax, Bisco-Lax) Inactive 06/20/2015 [facility] Insulin regular 1 unit, 0.01 mL, Route: SUB-Q, Drug form: SOLN, TID-Before Meals, Dosing Weight 77.273, kg, PRN Blood Glucose Results, Start date: 06/20/15 12:21:00, Duration: 30 day, Stop date: 07/20/15 12 :20:00Notes: (Same as: Humulin R) Roll in palms of hands gently; Do not shake vigorously. "single patient use only" (Restricted to patients requiring a dose > 60 units) Stable for 28 days at room temperature Expires in days from Date No Longer Active 06/20/2015 [facility] Dextrose 50% Syringe 12.5 gm, 25 mL, Route: IVP, Drug Form: INJ, Dosing Weight 77.273, kg, PRN, PRN Blood Glucose Results, Start date : 06/20/15 12:21:00, Duration: 30 day, Stop date: 07/20/15 12:20:00 No Longer Active 06/20/2015 [facility] Glucagon 1 mg, Route: IM, Drug form: PDR/INJ, PRN, Dosing Weight 77.273, kg, PRN Blood Glucose Results, Start date: 06/20/15 12:21: 00, Duration: 30 day, Stop date: 07/20/15 12:20:00 No Longer Active 06/20/2015 [facility] Acetaminophen 325 MG / Hydrocodone Bitartrate 5 MG Oral Tablet [[place] 5/325] 2 tab, Route: PO, Drug Form: TAB, Dosing Weight 77.273, kg, Q4H, PRN Pain Score 7-10, Start date: 06/18/15 11:11:00, Duration: 30 day, Stop date: 07/18/15 11:10:00Notes: (Same as: [place] 325/5) Do not exceed 4gm/ day of acetaminophen. No Longer Active 06/18/2015 [facility] gabapentin 100 MG Oral Capsule 100 mg, 1 cap, Route: PO, Drug form: CAP, Q8Hnow, Dosing Weight 77.273, kg, Start date: 06/18/15 11:00 :00, Duration: 30 day, Stop date: 07/18/15 8:00:00Notes: (Same as: Neurontin) No Longer Active 06/18/2015 [facility] Paxil 10 mg, 1 tab, Route: PO, Drug form: TAB, Daily, Dosing Weight 77.273, kg, Start date: 06/18/15 9:00:00, Duration: 30 day, Stop date: 07/17/15 9:00:00Notes: (Same as: Paxil) No Longer Active 06/18/2015 [facility] Omeprazole 20 mg, Route: PO, BID, Dosing Weight 77.273 , kg, Start date: 06/18/15 9:00:00, Duration: 30 day, Stop date: 07/17/15 17:00: 00 No Longer Active 06/18/2015 [facility] multivitamin with iron 1 tab, Route: PO, Drug Form: TAB, Dosing Weight 77.273, kg, Daily, Start date: 06/18/15 9:00:00, Duration: 30 day, Stop date: 07/17/15 9:00:00Notes: Same as Iron/C/B12/FA/SA No Longer Active 06/18/2015 [facility] Metformin hydrochloride 500 MG Oral Tablet 500 mg, 1 tab, Route: PO, Drug form: TAB, Daily, Dosing Weight 77.273, kg, Start date: 01/24 9:00:00, Duration: 30 day, Stop date: 07/17/15 9:00:00Notes: (Same as: Glucophage) Take with meal No Longer Active 06/18/2015 [facility] Losartan 50 mg, 1 tab, Route: PO, Drug form: TAB, Daily, Dosing Weight 77.273, kg, Start date: 06/18/15 9:00:00, Duration: 30 day , Stop date: 07/17/15 9:00:00Notes: (Same as: Cozaar) No Longer Active 06/18/2015 [facility] Vitamin B 12 100 microgram, 1 tab, Route: PO, Drug form: TAB, Daily, Dosing Weight 77.273, kg, Start date: 06/18/15 9:00:00, Duration: 30 day, Stop date: 07/17/15 9:00:00Notes: (Same As: Vitamin B12) No Longer Active 06/18/2015 [facility] Protonix 40 mg, 1 tab, Route: PO, Drug form: ECTAB, BID-Before Meals, Start date: 06/18/15 7:30:00, Duration: 30 day, Stop date: 11/24 16:30:00Notes: Tablet should not be chewed or crushed. (Same as: Protonix ) No Longer Active 06/18/2015 [facility] Lipitor 10 mg, 1 tab, Route: PO, Drug form: TAB, Bedtime, Start date: 06/17/15 21:00:00, Duration: 30 day, Stop date: 07/16/15 21 :00:00Notes: (Same As: Lipitor) No Longer Active 06/18/2015 [facility] Lovastatin 10 mg, Route: PO, Drug form: TAB, Bedtime, Dosing Weight 77.273, kg, Start date: 06/17/15 21:00:00, Duration: 30 day, Stop date: 07/16/15 21:00:00 Inactive 06/18/2015 [facility] latanoprost 0.05 MG/ML Ophthalmic Solution 1 drp, Route: BOTH EYES, Bedtime, Drug form: SOLN, Start date: 06/17/15 21:00:00, Duration: 30 day, Stop date: 07/16/15 21:00:00Notes: Keep refrigerated. (Same as :Xalatan) No Longer Active 01/2016 [facility] tamsulosin 0.4 mg, 1 cap, Route: PO, Drug form: CAP, Daily, Dosing Weight 77.273, kg, Priority: NOW, Start date: 06/17/15 18:33:00, Duration: 30 day, Stop date: 07/17/15 21:00:00Notes: (Same As: Flomax) "Do Not Crush" No Longer Active 2015 [facility] Docusate Sodium 100 MG Oral Capsule [Colace] 100 mg, 1 cap, Route: PO, Drug form: CAP, BID, Dosing Weight 77.273, kg, Start date: 12/24 17:00:00, Duration: 30 day, Stop date: 07/17/15 9:00:00Notes: (Same as: Colace) (Do Not Crush) No Longer Active 06/17/2015 [facility] Enoxaparin 40 mg, 0.4 mL, Route: SUB-Q, Drug form: INJ , [id number], Dosing Weight 77.273, kg, Start date: 06/17/15 15:00:00, Duration: 30 day, Stop date: 07/16/15 15:00:00Notes: (Same as: Lovenox) No Longer Active 06/17/2015 [facility] Zofran 4 mg, 2 mL, Route: IV, Drug form: INJ, Q8H, Dosing Weight 77.273, kg, PRN Nausea, Start date: 06/17/15 14:20:00, Duration: 30 day, Stop date: 07/17/15 14:19:00Notes: (Same as: Zofran) MEDICATION WASTE Product Size: 4 mg Product Wasted: ___ mg No Longer Active 06/17/2015 [facility] Oxycodone Hydrochloride 5 MG Oral Tablet 5 mg, 1 tab, Route: PO, Drug form: TAB, Q4H, Dosing Weight 77.273, kg, PRN Other -See Comment , Start date: 06/17/15 14:00:00, Duration: 30 day, Stop date: 07/17/15 13:59:00 , Pain Score 4-10Notes: (Same as: Roxicodone) No Longer Active 06/17/2015 [facility] Acetaminophen 1,000 mg, 2 tab, Route: PO, Drug form: TAB, Q6Hnow, Dosing Weight 77.273, kg, Start date: 06/17/15 14:00:00, Duration: 30 day, Stop date: 07/17/15 8:00:00Notes: Max acetaminophen 4000 mg/day (4 gm/ day). (Same as: Tylenol Extra Strength) No Longer Active 06/17/2015 [facility] Dilaudid 0.2 mg, 0.1 mL, Route: IV, Drug form: INJ, Q3H, Dosing Weight 77.273, kg, PRN Pain Score 7-10, Start date: 06/17/15 11:43: 00, Duration: 30 day, Stop date: 07/17/15 11:42:00Notes: Same as: Dilaudid No Longer Active 06/17/2015 [facility] tramadol hydrochloride 50 MG Oral Tablet 50 mg, 1 tab , Route: PO, Drug form: TAB, Q6H, Dosing Weight 77.273, kg, PRN Pain Score 1-3, Start date: 06/17/15 11:43:00, Duration: 30 day, Stop date: 07/17/15 11:42: 00Notes: Not to exceed 400mg/day. (Same As: Ultram) No Longer Active 06/17/2015 [facility] Acetaminophen 325 MG / Hydrocodone Bitartrate 5 MG Oral Tablet [[place] 5/325] 1 tab, Route: PO, Drug Form: TAB, Dosing Weight 77.273, kg, Q6H, PRN Pain Score 4-6, Start date: 06/17/15 11:41:00, Duration: 30 day, Stop date: 07/17/15 11:40:00Notes: (Same as: [place] 325/5) Do not exceed 4gm/ day of acetaminophen. Inactive 06/17/2015 [facility] Ondansetron 4 mg, Route: IVP, ONCE, Dosing Weight 77.273, kg, PRN Nausea & Vomiting, Start date: 06/17/15 10:23:00 Inactive 06/17/2015 [facility] Dexamethasone 4 mg, Route: IVP, ONCE, Dosing Weight 77.273, kg, PRN Nausea & Vomiting, Start date: 06/17/15 10:23:00 Inactive 06/17/2015 [facility] Flumazenil 0.2 mg, Route: IVP, PRN, Dosing Weight 77.273, kg, PRN Benzodiazepine Reversal, Initial dose, Start date: 06/17/15 10: 23:00, Duration: 30 day, Stop date: 07/17/15 10:22:00 Inactive 06/17/2015 [facility] Naloxone 0.04 mg, Route: IVP, Q2MIN, Dosing Weight 77.273, kg, PRN Narcotic Reversal, Start date: 06/17/15 10:23:00, Duration: 8 doses or times, Stop date: Limited # of times Inactive 06/17/2015 [facility] Oxycodone 10 mg, Route: PO, Drug form: TAB, Q4H, Dosing Weight 77.273, kg, PRN Pain Score 7-10, Start date: 06/17/15 10:23:00, Duration: 30 day, Stop date: 07/17/15 10:22:00 Inactive 06/17/2015 [facility] Metoprolol 1 mg, Route: IVP, Q5Min, Dosing Weight 77.273, kg, PRN Other -See Comment, Start date: 06/17/15 10:23:00, Duration: 5 doses or times, Stop date: Limited # of times Inactive 06/17/2015 [facility] Hydralazine 10 mg, Route: IVP, Q20Min, Dosing Weight 77.273, kg, PRN Elevated BP, Start date: 06/17/15 10:23:00, Duration: 2 doses or times, Stop date: Limited # of times Inactive 06/17/2015 [facility] Fentanyl 25 microgram, Route: IVP, Q5Min, Dosing Weight 77.273, kg, PRN Pain Score 4-6, Start date: 06/17/15 10:23:00, Duration: 4 doses or times, Stop date: Limited # of times Inactive 06/17/2015 [facility] Ibuprofen 600 mg, Route: PO, Drug form: TAB, Q6H, Dosing Weight 77.273, kg, PRN Pain Score 1-3, Start date: 06/17/15 10:23:00, Duration: 30 day, Stop date: 07/17/15 10:22:00 Inactive 06/17/2015 [facility] Ciprofloxacin 500 MG Oral Tablet [Cipro] 500 mg=1 tab , PO, Q12H, for UTI, # 6 tab, 0 Refill(s) No Longer Active 06/17/2015 [facility] tramadol hydrochloride 50 MG Oral Tablet 50 mg=1 tab, PO, Q6H, PRN Pain, # 40 tab, 0 Refill(s) Active 06/17/2015 [facility] Paroxetine 10 MG Oral Tablet [Paxil] 10 mg=1 tab, PO, Daily, # 30 tab, 0 Refill(s) Active 06/17/2015 [facility] Ofirmev 1,000 mg, 100 mL, Route: IV, Drug form: INJ, PRE OP, Start date: 06/17/15 5:00:00, Duration: 1 day, Stop date: 06/18/15 4:59: 00Notes: Infuse over 15 minutes Do not exceed 4gm/day of acetaminophen MEDICATION WASTE Product Size: 1000 mg Product Wasted: ___ mg No Longer Active 06/17/2015 [facility] scopolamine 1 patch, Route: TOP, Drug form: ERFILM, PRE OP, Start date: 06/17/15 5:00:00, Duration: 1 day, Stop date: 06/18/15 4:59: 00Notes: Change patch every 72 hours (Same as: Transderm-Scop) No Longer Active 06/17/2015 [facility] ceFAZolin 2 gm, 100 mL, Route: IVPB, Drug form: INJ, PRE OP, Start date: 06/17/15 5:00:00, Duration: 1 day, Stop date: 06/18/15 4:59: 00Notes: Same as: Ancef Inactive 06/17/2015 [facility] tramadol hydrochloride 50 MG Oral Tablet 50 mg=1 tab, PO, Q6H, PRN Pain, X 10 day, # 40 tab, 0 Refill(s) Active 05/13/2015 [facility] tamsulosin 0.4 mg, 1 cap, Route: PO, Drug form: CAP, Daily, Dosing Weight 63.636, kg, Start date: 05/13/15 9:00:00, Duration: 30 day , Stop date: 06/11/15 9:00:00Notes: (Same As: Flomax) "Do Not Crush" Inactive 05/13/2015 [facility] Losartan 50 mg, 1 tab, Route: PO, Drug form: TAB, Daily, Dosing Weight 63.636, kg, Start date: 05/13/15 9:00:00, Duration: 30 day , Stop date: 06/11/15 9:00:00Notes: (Same as: Cozaar) Inactive 05/13/2015 [facility] ceFAZolin (SCIP) 1 gm, Route: IVPB, Drug form: PDR/INJ , ABXQ8H, Dosing Weight 63.636, kg, Start date: 05/12/15 22:00:00, Duration: 3 doses or times, Stop date: 05/13/15 14:00:00Notes: (Same As: [place] Kefzol) * MEDICATION WASTE Product Size: 1000 mg Product Wasted: ___ mg Active 05/13/2015 [facility] Saline Flush 0.9% 10 ml, Route: IVP, Drug Form: INJ, Dosing Weight 63.636, kg, Q12H, Start date: 05/12/15 21:00:00, Duration: 30 day , Stop date: 06/11/15 9:00:00Notes: (Same as: BD Posiflush) No Longer Active 05/13/2015 [facility] latanoprost 0.05 MG/ML Ophthalmic Solution 1 drp, Route: BOTH EYES, Bedtime, Drug form: SOLN, Start date: 05/12/15 21:00:00, Duration: 30 day, Stop date: 06/10/15 21:00:00Notes: Keep refrigerated. (Same as :Xalatan) No Longer Active 08/2014 [facility] Protonix 40 mg, 1 tab, Route: PO, Drug form: ECTAB, BID-Before Meals, Start date: 05/12/15 19:30:00, Duration: 30 day, Stop date: 16:30:00Notes: Tablet should not be chewed or crushed. (Same as: Protonix ) No Longer Active 05/13/2015 [facility] Acetaminophen 650 mg, 2 tab, Route: PO, Drug form: TAB , Q6H, Dosing Weight 63.636, kg, Start date: 05/12/15 18:00:00, Duration: 30 day , Stop date: 06/11/15 12:00:00Notes: Do not exceed 4 gm/day. (Same as: Tylenol ) No Longer Active 05/13/2015 [facility] gabapentin 100 mg, 1 cap, Route: PO, Drug form: CAP, Q8Hnow, Dosing Weight 63.636, kg, Start date: 05/12/15 18:00:00, Duration: 30 day, Stop date: 06/11/15 10:00:00Notes: (Same as: Neurontin) No Longer Active 05/13/2015 [facility] Oxycodone Hydrochloride 5 MG Oral Tablet 5 mg, 1 tab, Route: PO, Drug form: TAB, Q6H, Dosing Weight 63.636, kg, PRN Pain Score 6-10, Start date: 05/12/15 17:05:00, Duration: 30 day, Stop date: 06/11/15 17:04: 00Notes: (Same as: Roxicodone) No Longer Active 05/12/2015 [facility] Tramadol 50 mg, 1 tab, Route: PO, Drug form: TAB, Q8H , Dosing Weight 63.636, kg, PRN Pain Score 1-5, Start date: 05/12/15 17:05:00, Duration: 30 day, Stop date: 06/11/15 17:04:00Notes: Not to exceed 400mg/day. ( Same As: Ultram) No Longer Active 05/12/2015 [facility] docusate sodium 100 mg oral capsule 100 mg, 1 cap, Route: PO, Drug form: CAP, BID, Dosing Weight 63.636, kg, Start date: 05/12/15 17:00:00, Duration: 30 day, Stop date: 06/11/15 9:00:00Notes: (Same as: Colace) (Do Not Crush) No Longer Active 05/12/2015 [facility] Omeprazole 20 mg, Route: PO, BID, Dosing Weight 63.636 , kg, Start date: 05/12/15 17:00:00, Duration: 30 day, Stop date: 06/11/15 9:00: 00 Inactive 05/12/2015 [facility] dorzolamide / Timolol Route: BOTH EYES, BID, Drug form : SOLN, Start date: 05/12/15 17:00:00, Duration: 30 day, Stop date: 06/11/15 9: 00:00Notes: (Same as: Cosopt) No Longer Active 05/12/2015 [facility] Saline Flush 0.9% 10 ml, Route: IVP, Drug Form: INJ, Dosing Weight 63.636, kg, PRN, PRN Line Flush, Start date: 05/12/15 16:59:00, Duration: 30 day, Stop date: 06/11/15 16:58:00Notes: (Same as: BD Posiflush) No Longer Active 05/12/2015 [facility] Al hydroxide/Mg hydroxide/simethicone 200 mg-200 mg-20 mg/5 mL oral suspension 30 mL, Route: PO, Drug Form: SUSP, Dosing Weight 63.636, kg, Q4H, PRN Indigestion, Start date: 05/12/15 16:59:00, Duration: 30 day, Stop date: 06/11/15 16:58:00Notes: (aluminum hydroxide-magnesium hyd- simethicone [phone]/5ml 30 ml ud ANYI) No Longer Active 05/12/2015 [facility] Ondansetron 4 mg, 2 mL, Route: IVP, Drug form: INJ, Q6H, Dosing Weight 63.636, kg, PRN Nausea & Vomiting, Start date: 05/12/15 16:59 :00, Duration: 30 day, Stop date: 06/11/15 16:58:00Notes: (Same as: Laura) * MEDICATION WASTE Product Size: 4 mg Product Wasted: ___ mg No Longer Active 05/12/2015 [facility] acetaminophen-codeine #3 1 tab, Route: PO, Drug Form: TAB, Dosing Weight 63.636, kg, Q4H, PRN Pain Score 4-6, Start date: 05/12/15 16: 59:00, Duration: 30 day, Stop date: 06/11/15 16:58:00Notes: Do not exceed 4gm/ day of acetaminophen. (Same as: Tylenol with Codeine # 3) No Longer Active 05/12/2015 [facility] Ofirmev 1,000 mg, 100 mL, Route: IV, Drug form: INJ, PRE OP, Start date: 05/12/15 16:00:00, Duration: 1 day, Stop date: 05/13/15 15: 59:00Notes: Infuse over 15 minutes Do not exceed 4gm/day of acetaminophen * MEDICATION WASTE Product Size: 1000 mg Product Wasted: ___ mg No Longer Active 05/12/2015 [facility] Ancef 2 gm, Route: IVPB, ONCE, Dosing Weight 63.636, kg, Start date: 05/12/15 14:39:00, Duration: 1 doses or times, Stop date: 14:39:00, Surgical Prophylaxis Only; For patients Inactive 05/12/2015 [facility] Acetaminophen 325 MG / Hydrocodone Bitartrate 10 MG Oral Tablet [[place] 10/325] 1 tab, PO, Q6H, 0 Refill(s) Active 05/12/2015 [facility] Tylenol PO, 0 Refill(s) Active 05/12/2015 [facility] Ofirmev 1,000 mg, 100 mL, Route: IV, Drug form: INJ, PRE OP, Priority: STAT, Start date: 05/12/15 6:30:00, Duration: 1 day, Stop date : 05/13/15 6:29:00Notes: Infuse over 15 minutes Do not exceed 4gm/day of acetaminophen MEDICATION WASTE Product Size: 1000 mg Product Wasted : ___ mg No Longer Active 07/2014 [facility] scopolamine 1 patch, Route: TOP, Drug form: ERFILM, PRE OP, Priority: STAT, Start date: 05/12/15 6:30:00, Duration: 1 day, Stop date : 05/13/15 6:29:00Notes: Change patch every 72 hours (Same as: Transderm-Scop ) Inactive 05/12/2015 [facility] ceFAZolin 2 gm, 100 mL, Route: IVPB, Drug form: INJ, PRE OP, Priority: STAT, Start date: 05/12/15 6:30:00, Duration: 1 day, Stop date : 05/13/15 6:29:00Notes: Same as: Ancef No Longer Active 05/12/2015 [facility] tramadol hydrochloride 50 MG Oral Tablet 50 mg=1 tab, PO, BID, PRN Pain Score 4-6, # 30 tab, 0 Refill(s) Active 03/30/2015 [facility] Acetaminophen 300 MG / Codeine Phosphate 60 MG Oral Tablet [Tylenol with Codeine #4] 1 - 2 tab, PO, Q6H, PRN Pain, X 10 day, # 32 tab, 0 Refill(s) Active [facility] tamsulosin 0.4 mg, 1 cap, Route: PO, Drug form: CAP, Daily, Dosing Weight 73.636, kg, Start date: 03/27/15 9:00:00, Duration: 30 day , Stop date: 04/25/15 9:00:00Notes: (Same As: Flomax) "Do Not Crush" No Longer Active 03/27/2015 [facility] Losartan 50 mg, 1 tab, Route: PO, Drug form: TAB, Daily, Dosing Weight 73.636, kg, Start date: 03/27/15 9:00:00, Duration: 30 day , Stop date: 04/25/15 9:00:00Notes: (Same as: Cozaar) No Longer Active 03/27/2015 [facility] Vitamin B 12 100 microgram, 1 tab, Route: PO, Drug form: TAB, Daily, Dosing Weight 73.636, kg, Start date: 03/27/15 9:00:00, Duration: 30 day, Stop date: 04/25/15 9:00:00Notes: (Same As: Vitamin B12) No Longer Active 03/27/2015 [facility] ceFAZolin 2 gm, 50 mL, Route: IVPB, Drug form: INJ, PRE OP, Start date: 03/27/15 5:00:00, Duration: 1 day, Stop date: 03/28/15 4:59: 00 Active 03/27/2015 [facility] Ofirmev 1,000 mg, 100 mL, Route: IV, Drug form: INJ, PRE OP, Start date: 03/27/15 5:00:00, Duration: 1 day, Stop date: 03/28/15 4:59: 00Notes: Infuse over 15 minutes Do not exceed 4gm/day of acetaminophen MEDICATION WASTE Product Size: 1000 mg Product Wasted: ___ mg Active 03/27/2015 [facility] Hydralazine 10 mg, 0.5 mL, Route: IV, Drug form: INJ, ONCE, Dosing Weight 73.636, kg, Start date: 03/26/15 22:01:00, Stop date: 22:01:00Notes: (Same as: Apresoline) Push over 5 minutes Inactive 03/27/2015 [facility] tramadol hydrochloride 50 MG Oral Tablet 50 mg, 1 tab , Route: PO, Drug form: TAB, Q12H, Dosing Weight 73.636, kg, Start date: 21:00:00, Duration: 30 day, Stop date: 04/25/15 9:00:00Notes: Not to exceed 400mg/day. (Same As: Ultram) No Longer Active 03/27/2015 [facility] Lovastatin 10 mg, Route: PO, Drug form: TAB, Bedtime, Dosing Weight 73.636, kg, Start date: 03/26/15 21:00:00, Duration: 30 day, Stop date: 04/24/15 21:00:00 Inactive 03/27/2015 [facility] Lipitor 10 mg, 1 tab, Route: PO, Drug form: TAB, Bedtime, Start date: 03/26/15 21:00:00, Duration: 30 day, Stop date: 04/24/15 21 :00:00Notes: (Same As: Lipitor) No Longer Active 03/27/2015 [facility] latanoprost 0.05 MG/ML Ophthalmic Solution 1 drp, Route: BOTH EYES, Bedtime, Drug form: SOLN, Start date: 03/26/15 21:00:00, Duration: 30 day, Stop date: 04/24/15 21:00:00Notes: Keep refrigerated. (Same as :Xalatan) No Longer Active [facility] Omeprazole 20 mg, Route: PO, BID, Dosing Weight 73.636 , kg, Start date: 03/26/15 17:00:00, Duration: 30 day, Stop date: 04/25/15 9:00: 00 Inactive 03/26/2015 [facility] Protonix 40 mg, 1 tab, Route: PO, Drug form: ECTAB, BID, Start date: 03/26/15 17:00:00, Duration: 30 day, Stop date: 04/25/15 9:00: 00Notes: Tablet should not be chewed or crushed. (Same as: Protonix) No Longer Active 03/26/2015 [facility] Metformin hydrochloride 500 MG Oral Tablet 500 mg, 1 tab, Route: PO, Drug form: TAB, TID-Meals, Dosing Weight 73.636, kg, Start date : 03/26/15 17:00:00, Duration: 30 day, Stop date: 04/25/15 12:00:00Notes: (Same as: Glucophage) Take with meal No Longer Active 03/26/2015 [facility] docusate sodium 100 mg oral capsule 100 mg, 1 cap, Route: PO, Drug form: CAP, BID, Dosing Weight 73.636, kg, Start date: 03/26/15 17:00:00, Duration: 30 day, Stop date: 04/25/15 9:00:00Notes: (Same as: Colace) (Do Not Crush) No Longer Active 03/26/2015 [facility] heparin 5,000 unit, 1 mL, Route: SUB-Q, Drug form: INJ , Q8H, Dosing Weight 73.636, kg, Start date: 03/26/15 16:00:00, Duration: 30 day , Stop date: 04/25/15 8:00:00Notes: porcine heparin No Longer Active 03/26/2015 [facility] benzonatate 100 mg, 1 cap, Route: PO, Drug form: CAP, TID, Dosing Weight 73.636, kg, PRN Cough, Start date: 03/26/15 13:00:00, Duration: 30 day, Stop date: 04/25/15 11:59:00Notes: (Same As: Jerrod Lockhart) "Do Not Crush" No Longer Active 03/26/2015 [facility] Ondansetron 4 mg, Route: IVP, ONCE, Dosing Weight 73.636, kg, PRN Nausea & Vomiting, Start date: 03/26/15 12:12:00 Inactive 03/26/2015 [facility] Naloxone 0.04 mg, Route: IVP, Q2MIN, Dosing Weight 73.636, kg, PRN Narcotic Reversal, Start date: 03/26/15 12:12:00, Duration: 8 doses or times, Stop date: Limited # of times Inactive 03/26/2015 [facility] Morphine 2 mg, Route: IVP, Q5Min, Dosing Weight 73.636 , kg, PRN Pain Score 4-6, Start date: 03/26/15 12:12:00, Duration: 5 doses or times, Stop date: Limited # of times Inactive 03/26/2015 [facility] Labetalol 10 mg, Route: IVP, Q5Min, Dosing Weight 73.636, kg, PRN Elevated BP, Start date: 03/26/15 12:12:00, Duration: 5 doses or times, Stop date: Limited # of times Inactive 03/26/2015 [facility] Flumazenil 0.2 mg, Route: IVP, PRN, Dosing Weight 73.636, kg, PRN Benzodiazepine Reversal, Initial dose, Start date: 03/26/15 12: 12:00, Duration: 30 day, Stop date: 04/25/15 11:11:00 Inactive 03/26/2015 [facility] Insulin regular 10 unit, 0.1 mL, Route: SUB-Q, Drug form: SOLN, TID-Before Meals, Dosing Weight 73.636, kg, PRN Blood Glucose Results, Start date: 03/26/15 12:04:00, Duration: 30 day, Stop date: 04/25/15 12 :03:00Notes: (Same as: Humulin R) Roll in palms of hands gently; Do not shake vigorously. "single patient use only" (Restricted to patients requiring a dose > 60 units) Stable for 28 days at room temperature Expires in days from Date No Longer Active 03/26/2015 [facility] Dextrose 50% Syringe 12.5 gm, 25 mL, Route: IVP, Drug Form: INJ, Dosing Weight 73.636, kg, PRN, PRN Blood Glucose Results, Start date : 03/26/15 12:04:00, Duration: 30 day, Stop date: 04/25/15 11:03:00 No Longer Active 03/26/2015 [facility] Glucagon 1 mg, Route: IM, Drug form: PDR/INJ, PRN, Dosing Weight 73.636, kg, PRN Blood Glucose Results, Start date: 03/26/15 12:04: 00, Duration: 30 day, Stop date: 04/25/15 11:03:00 No Longer Active 03/26/2015 [facility] Acetaminophen 325 MG / Hydrocodone Bitartrate 5 MG Oral Tablet [[place] 5/325] 1 tab, Route: PO, Drug Form: TAB, Dosing Weight 73.636, kg, Q4H, PRN Pain Score 4-6, Start date: 03/26/15 12:03:00, Duration: 30 day, Stop date: 04/25/15 12:02:00Notes: (Same as: [place] 325/5) Do not exceed 4gm/ day of acetaminophen. No Longer Active 03/26/2015 [facility] Isolyte S PH 7.4 1,000 mL 1,000 mL, Rate: 50 ml/hr, Infuse over: 20 hr, Route: IV, Dosing Weight 73.636 kg, Total Volume: 1,000, Start date: 03/26/15 12:03:00, Stop date: 04/25/15 12:02:00Notes: (Same as: Isolyte S PH 7.4) No Longer Active 03/26/2015 [facility] Hydromorphone 0.3 mg, 0.15 mL, Route: IVP, Drug form: INJ, Q3H, Dosing Weight 73.636, kg, PRN Pain Score 7-10, Start date: 03/26/15 11 :55:00, Stop date: 04/25/15 11:54:00Notes: Same as: Dilaudid No Longer Active 03/26/2015 [facility] Acetaminophen 325 MG / Hydrocodone Bitartrate 5 MG Oral Tablet 1 tab, Route: PO, Dosing Weight 73.636, kg, Q4H, PRN Pain Score 4-6, Start date: 03/26/15 11:55:00, Duration: 30 day, Stop date: 04/25/15 11:54:00 Inactive 03/26/2015 [facility] ceFAZolin 2 gm, 100 mL, Route: IVPB, Drug form: INJ, PRE OP, Start date: 03/26/15 6:00:00, Duration: 1 day, Stop date: 03/27/15 5:59: 00Notes: Same as: Ancef Inactive 03/26/2015 [facility] Ofirmev 1,000 mg, 100 mL, Route: IV, Drug form: INJ, PRE OP, Start date: 03/26/15 2:00:00, Duration: 30 day, Stop date: 04/25/15 0:59 :00Notes: Infuse over 15 minutes Do not exceed 4gm/day of acetaminophen MEDICATION WASTE Product Size: 1000 mg Product Wasted: ___ mg No Longer Active 03/26/2015 [facility] ceFAZolin 2 gm, 50 mL, Route: IVPB, Drug form: INJ, PRE OP, Start date: 03/26/15 2:00:00, Duration: 1 day, Stop date: 03/27/15 1:59: 00 Inactive 03/26/2015 [facility] Omeprazole 20 mg, PO, BID, 0 Refill(s) Active 03/17/2015 [facility] tamsulosin 0.4 mg oral capsule 0.4 mg=1 cap, PO, Daily , # 30 cap, 0 Refill(s) Active 03/17/2015 [facility] Iron-150 oral tablet 1 tab, PO, Daily, 0 Refill(s) Active 03/17/2015 [facility] ciclopirox 7.7 MG/ML Topical Cream 1 appl, TOP, BID, # 15 gm, 0 Refill(s) Active 12/2014 [facility] Metformin hydrochloride 500 MG Oral Tablet 500 mg=1 tab, PO, TID, 0 Refill(s) Active 03/17/2015 [facility] Bacitracin TOP, Daily, 0 Refill(s) Active 03/17/2015 [facility] Mucinex 600 mg, PO, Q12H, PRN Congestion, 0 Refill(s) Active 03/17/2015 [facility] benzonatate 100 mg oral capsule 100 mg=1 cap, PO, TID , do not crush or chew, # 30 cap, 0 Refill(s)Special Instructions: do not crush or chew Active 03/17/2015 [facility] latanoprost 0.05 MG/ML Ophthalmic Solution 1 drp, BOTH EYES, Bedtime, # 1 btl, 1 Refill(s) Active 03/17/2015 [facility] lovastatin 10 mg oral tablet 10 mg=1 tab, PO, Bedtime , # 30 tab, 0 Refill(s) Active 03/17/2015 [facility] dorzolamide / Timolol BOTH EYES, BID, 0 Refill(s) Active 03/17/2015 [facility] Vitamin B-12 100 mcg oral tablet 100 microgram=1 tab, PO, Daily, # 30 tab, 0 Refill(s) Active 03/17/2015 [facility] tramadol hydrochloride 50 MG Oral Tablet 50 mg=1 tab, PO, BID, # 30 tab, 0 Refill(s) No Longer Active 03/17/2015 [facility] Urea 410 MG/ML Topical Cream 1 appl, TOP, BID, 0 Refill(s) Active 03/17/2015 [facility] losartan 50 mg oral tablet 50 mg=1 tab, PO, Daily, # 30 tab, 0 Refill(s) Active 12/2014 [facility] oxybutynin 5 mg oral tablet 5 mg=1 tab, PO, TID, PRN Other-See Comments, # 30 tab, 0 Refill(s) Active 03/17/2015 [facility] Allergies, Adverse Reactions, Alerts Substance Category Reaction Severity Reaction type Status Date Reported Comments Source Immunizations Immunization Date Given Site Status Last Updated Comments Source Results Order Name Results Value Reference Range Date Interpretation Comments Source Spine lumbar series DX Spine lumbar series DX EXAM: XR Spine lumbar series DX DATE: 05/28/2017 4:06 PM [employer] INDICATION: - M54.5 Low back pain Pain. COMPARISON: None available TECHNIQUE: AP, lateral and coned-down lateral projections of lumbar spine. DISCUSSION: No acute fracture is identified. 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 Diffuse osteopenia is present IMPRESSION: Multilevel diffuse degenerative changes are present. . 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 Mild Degenerative changes of bilateral hips. No soft tissue abnormality is identified. IMPRESSION: No acute abnormality. 05/28/2017 - - Read by: Clement Goldberg MD Dictated Date/time: 05/28/17 17:20 Electronically Signed by: Clement Goldberg MD 05/28/17 17 :20 FINAL REPORT [facility] Pelvis AP DX Pelvis AP DX EXAM: XR PELVIS 1 VIEW EXAM: Sacroiliac joints 3 view. DATE: 01/08/2017 3:52 PM CDT INDICATION: - M54.9 Dorsalgia, unspecified COMPARISON: None TECHNIQUE: A single AP supine radiograph of the pelvis, and AP and oblique projections of the sacral joints. FINDINGS: No acute fracture or malalignment is identified. Bilateral chronic ankylosis of sacroiliac joints The soft tissues are unremarkable. IMPRESSION: No acute abnormality. Bilateral chronic ankylosis of sacroiliac joints. Consider seronegative spondyloarthropathy. 01/08/2017 - - Read by: Clement Goldberg MD Dictated Date/time: 01/08/17 16:33 Electronically Signed by: Clement Goldberg MD 01/08/17 16 :35 FINAL REPORT [facility] Sacroiliac joints series DX Sacroiliac joints series DX EXAM: XR PELVIS 1 VIEW EXAM: Sacroiliac joints 3 view. DATE: 01/08/2017 3:52 PM CDT INDICATION: - M54.9 Dorsalgia, unspecified COMPARISON: None TECHNIQUE: A single AP supine radiograph of the pelvis, and AP and oblique projections of the sacral joints. FINDINGS: No acute fracture or malalignment is identified. Bilateral chronic ankylosis of sacroiliac joints The soft tissues are unremarkable. IMPRESSION: No acute abnormality. Bilateral chronic ankylosis of sacroiliac joints. Consider seronegative spondyloarthropathy. 01/08/2017 - - Read by: Clement Goldberg MD Dictated Date/time: 01/08/17 16:33 Electronically Signed by: Clement Goldberg MD 01/08/17 16 :35 FINAL REPORT [facility] BLOOD BANK RESULTS Antibody Scrn Negative (05/01/16 6:27 AM) 2015 [facility] BLOOD BANK RESULTS ABO/Rh O POS 05/01/2016 [facility] ELECTROLYTES AGAP 10.9 meq/L 10.0 - 20.0 05/01/2016 [facility] ELECTROLYTES B/C Ratio 13 6 - 25 05/01/2016 [facility] ELECTROLYTES Globulin 3.6 g/ dL 2.7 - 4.2 05/01/2016 [facility] ELECTROLYTES A/G Ratio 1.0 0.7 - 1.6 05/01/2016 [facility] ELECTROLYTES eGFR 58 mL/min/ 1.73m2 05/01/2016 Result Comment: The eGFR is calculated using the CKD-EPI formula. In most young, healthy individuals the eGFR will be >90 mL/min/1.73m2. The eGFR declines with age. An eGFR of 60-89 may be normal in some populations, particularly the elderly, for whom the CKD- EPI formula has not been extensively validated. Use [...] should be multiplied by the estimated BMI. [facility] ELECTROLYTES BUN 15 mg/dL 7 - 22 05/01/2016 [facility] ELECTROLYTES Glucose Lvl 122 mg/dL 70 - 99 05/01/2016 [facility] ELECTROLYTES Calcium Lvl 8.7 mg/dL 8.5 - 10.5 05/01/2016 [facility] ELECTROLYTES Chloride Lvl 103 meq/L 95 - 109 2015 [facility] ELECTROLYTES CO2 30 meq/L 24 - 32 05/01/2016 [facility] ELECTROLYTES Creatinine Lvl 1.13 mg/dL 0.50 - 1.40 2015 [facility] ELECTROLYTES Sodium Lvl 140 meq/L 135 - 145 05/01/2016 [facility] ELECTROLYTES Potassium Lvl 3.9 meq/L 3.5 - 5.1 2015 [facility] ELECTROLYTES Total Protein 7.3 g/dL 6.4 - 8.4 2015 [facility] ELECTROLYTES Bili Total 0.3 mg/dL 0.2 - 1.3 05/01/2016 [facility] ELECTROLYTES Alk Phos 116 unit/L 39 - 136 05/01/2016 [facility] ELECTROLYTES AST 10 unit/L 0 - 37 05/01/2016 [facility] ELECTROLYTES ALT 13 unit/L 0 - 65 05/01/2016 [facility] ELECTROLYTES Albumin Lvl 3.7 g/dL 3.5 - 5.0 05/01/2016 [facility] HEMATOLOGY PTT 34.8 s 22.9 - 35.8 05/01/2016 [facility] HEMATOLOGY INR 1.18 0.85 - 1.17 05/01/2016 [facility] HEMATOLOGY PT 15.2 s 12.0 - 14.7 05/01/2016 [facility] HEMATOLOGY WBC 6.0 K/CMM 3.7 - 10.4 05/01/2016 [facility] HEMATOLOGY RDW 13.6 % 11.5 - 14.5 05/01/2016 [facility] HEMATOLOGY MPV 8.6 fL 7.4 - 10.4 05/01/2016 [facility] HEMATOLOGY Platelet 203 K/ CMM 133 - 450 05/01/2016 [facility] HEMATOLOGY MCHC 33.2 g/dL 32.0 - 36.0 05/01/2016 [facility] HEMATOLOGY MCH 29.7 pg 27.0 - 31.0 05/01/2016 [facility] HEMATOLOGY Hgb 11.5 g/dL 14.0 - 18.0 05/01/2016 [facility] HEMATOLOGY MCV 89.4 fL 80.0 - 94.0 05/01/2016 [facility] HEMATOLOGY Hct 34.6 % 42.0 - 54.0 05/01/2016 [facility] HEMATOLOGY RBC 3.87 M/CMM 4.70 - 6.10 05/01/2016 [facility] HEMATOLOGY Eosinophils 3.0 % 0.0 - 4.0 05/01/2016 [facility] HEMATOLOGY Monocytes # 0.5 K/ CMM 0.0 - 0.8 05/01/2016 [facility] HEMATOLOGY Basophils 0.8 % 0.0 - 1.0 05/01/2016 [facility] HEMATOLOGY Lymphocytes 41.2 % 20.0 - 40.0 05/01/2016 [facility] HEMATOLOGY Segs 46.5 % 45.0 - 75.0 05/01/2016 [facility] HEMATOLOGY Monocytes 8.5 % 2.0 - 12.0 05/01/2016 [facility] HEMATOLOGY Eosinophils # 0.2 K/CMM 0.0 - 0.5 05/01/2016 [facility] HEMATOLOGY Lymphocytes # 2.5 K/CMM 1.0 - 5.5 05/01/2016 [facility] HEMATOLOGY Segs-Bands # 2.8 K /CMM 1.5 - 8.1 05/01/2016 [facility] SPECIAL CHEMISTRY Hgb A1C 5.9 % <=5.6 % 05/01/2016 [facility] CHEM PANEL Magnesium Lvl 2.1 mg/dL 1.8 - 2.4 06/18/2015 [facility] CHEM PANEL Phosphorus 4.4 mg/ dL 2.5 - 4.5 06/18/2015 [facility] CHEM PANEL eGFR 72 mL/min/ 1.73m2 06/18/2015 Result Comment: The eGFR is calculated using the CKD-EPI formula. In most young, healthy individuals the eGFR will be >90 mL/min/1.73m2. The eGFR declines with age. An eGFR of 60-89 may be normal in some populations, particularly the elderly, for whom the CKD- EPI formula has not been extensively validated. Use [...] should be multiplied by the estimated BMI. [facility] CHEM PANEL BUN 14 mg/dL 7 - 22 06/18/2015 [facility] CHEM PANEL Sodium Lvl 138 meq /L 135 - 145 06/18/2015 [facility] CHEM PANEL CO2 24 meq/L 24 - 32 06/18/2015 [facility] CHEM PANEL AGAP 14.2 meq/L 10.0 - 20.0 06/18/2015 [facility] CHEM PANEL Calcium Lvl 8.3 mg /dL 8.5 - 10.5 06/18/2015 [facility] CHEM PANEL Potassium Lvl 4.2 meq/L 3.5 - 5.1 06/18/2015 [facility] CHEM PANEL Chloride Lvl 104 meq/L 95 - 109 06/18/2015 [facility] CHEM PANEL Creatinine Lvl 0.95 mg/dL 0.50 - 1.40 2015 [facility] CHEM PANEL Glucose Lvl 82 mg/ dL 70 - 99 06/18/2015 [facility] HEMATOLOGY Hgb 9.2 g/dL 14.0 - 18.0 06/18/2015 [facility] HEMATOLOGY Hct 28.0 % 42.0 - 54.0 06/18/2015 [facility] HEMATOLOGY MCV 91.4 fL 80.0 - 94.0 06/18/2015 [facility] HEMATOLOGY MCH 29.9 pg 27.0 - 31.0 06/18/2015 [facility] HEMATOLOGY RBC 3.06 M/CMM 4.70 - 6.10 06/18/2015 [facility] HEMATOLOGY WBC 6.4 K/CMM 3.7 - 10.4 06/18/2015 [facility] HEMATOLOGY MPV 8.3 fL 7.4 - 10.4 06/18/2015 [facility] HEMATOLOGY MCHC 32.7 g/dL 32.0 - 36.0 06/18/2015 [facility] HEMATOLOGY RDW 13.7 % 11.5 - 14.5 06/18/2015 [facility] HEMATOLOGY Platelet 216 K/ CMM 133 - 450 06/18/2015 [facility] HEMATOLOGY Basophils 0.5 % 0.0 - 1.0 06/18/2015 [facility] HEMATOLOGY Eosinophils 1.7 % 0.0 - 4.0 06/18/2015 [facility] HEMATOLOGY Monocytes 8.7 % 2.0 - 12.0 06/18/2015 [facility] HEMATOLOGY Lymphocytes 24.9 % 20.0 - 40.0 06/18/2015 [facility] HEMATOLOGY Segs 64.2 % 45.0 - 75.0 06/18/2015 [facility] HEMATOLOGY Eosinophils # 0.1 K/CMM 0.0 - 0.5 06/18/2015 [facility] HEMATOLOGY Monocytes # 0.6 K/ CMM 0.0 - 0.8 06/18/2015 [facility] HEMATOLOGY Lymphocytes # 1.6 K/CMM 1.0 - 5.5 06/18/2015 [facility] HEMATOLOGY Segs-Bands # 4.1 K /CMM 1.5 - 8.1 06/18/2015 [facility] PARATHYROID PROFILE Ca Ion WB 1.07 mMol/L 1.05 - 1.25 01/2016 [facility] PARATHYROID PROFILE Ca Norm WB 1.07 mMol/L 1.05 - 1.25 [facility] URINE AND STOOL UA Urobilinogen <=1.0 mg/dL 0.1 - 1.0 [facility] URINE AND STOOL UA RBC 1 / HPF 0 - 2 06/18/2015 [facility] URINE AND STOOL UA Mucus Few /LPF None Seen /LPF 2015 [facility] URINE AND STOOL UA WBC 3 / HPF 0 - 5 06/18/2015 [facility] URINE AND STOOL UA Sq Epi None Seen 06/18/2015 [facility] URINE AND STOOL UA Leuk Est Negative (06/17/15 6:28 PM) Negative 06/18/2015 [facility] URINE AND STOOL UA Blood Negative (06/17/15 6:28 PM) Negative 06/18/2015 [facility] URINE AND STOOL UA Nitrite Negative (06/17/15 6:28 PM) Negative 06/18/2015 [facility] URINE AND STOOL UA Bili Negative *NA* (06/17/15 6:28 PM) Negative 06/18/2015 [facility] URINE AND STOOL UA Ketones Negative mg/dL Negative mg/dL 06/18/2015 [facility] URINE AND STOOL UA Protein 10 mg/dL Negative mg/dL 01/2016 [facility] URINE AND STOOL UA Glucose Negative mg/dL Negative mg/dL 06/18/2015 [facility] URINE AND STOOL UA pH 6.0 5.0 - 8.0 06/18/2015 [facility] URINE AND STOOL UA Color Yellow *NA* (06/17/15 6:28 PM) Yellow 01/2016 [facility] URINE AND STOOL UA Turbidity Clear (06/17/15 6:28 PM) Clear 01/2016 [facility] URINE AND STOOL UA Spec Grav 1.016 <=1.030 06/18/2015 [facility] CHEM PANEL eGFR 54 mL/min/ 1.73m2 06/17/2015 Result Comment: The eGFR is calculated using the CKD-EPI formula. In most young, healthy individuals the eGFR will be >90 mL/min/1.73m2. The eGFR declines with age. An eGFR of 60-89 may be normal in some populations, particularly the elderly, for whom the CKD- EPI formula has not been extensively validated. Use [...] should be multiplied by the estimated BMI. [facility] CHEM PANEL Bili Total 0.8 mg/ dL 0.2 - 1.3 06/17/2015 [facility] CHEM PANEL Alk Phos 204 unit/ L 39 - 136 06/17/2015 [facility] CHEM PANEL AST 32 unit/L 0 - 37 06/17/2015 [facility] CHEM PANEL Total Protein 7.4 g/dL 6.4 - 8.4 06/17/2015 [facility] CHEM PANEL ALT 29 unit/L 0 - 65 06/17/2015 [facility] CHEM PANEL Albumin Lvl 2.8 g/ dL 3.5 - 5.0 06/17/2015 [facility] CHEM PANEL Creatinine Lvl 1.20 mg/dL 0.50 - 1.40 2015 [facility] CHEM PANEL BUN 22 mg/dL 7 - 22 06/17/2015 [facility] CHEM PANEL Sodium Lvl 137 meq /L 135 - 145 06/17/2015 [facility] CHEM PANEL Glucose Lvl 123 mg /dL 70 - 99 06/17/2015 [facility] CHEM PANEL CO2 26 meq/L 24 - 32 06/17/2015 [facility] CHEM PANEL Calcium Lvl 8.9 mg /dL 8.5 - 10.5 06/17/2015 [facility] CHEM PANEL Potassium Lvl 4.2 meq/L 3.5 - 5.1 06/17/2015 [facility] CHEM PANEL Chloride Lvl 102 meq/L 95 - 109 06/17/2015 [facility] CHEM PANEL AGAP 13.2 meq/L 10.0 - 20.0 06/17/2015 [facility] CHEM PANEL Globulin 4.6 g/dL 2.0 - 4.0 06/17/2015 [facility] CHEM PANEL B/C Ratio 18 6 - 25 06/17/2015 [facility] CHEM PANEL A/G Ratio 0.6 0.7 - 1.6 06/17/2015 [facility] HEMATOLOGY MPV 8.2 fL 7.4 - 10.4 06/17/2015 [facility] HEMATOLOGY RBC 3.57 M/CMM 4.70 - 6.10 06/17/2015 [facility] HEMATOLOGY Hct 33.0 % 42.0 - 54.0 06/17/2015 [facility] HEMATOLOGY Hgb 10.8 g/dL 14.0 - 18.0 06/17/2015 [facility] HEMATOLOGY MCH 30.2 pg 27.0 - 31.0 06/17/2015 [facility] HEMATOLOGY MCV 92.5 fL 80.0 - 94.0 06/17/2015 [facility] HEMATOLOGY MCHC 32.7 g/dL 32.0 - 36.0 06/17/2015 [facility] HEMATOLOGY RDW 13.3 % 11.5 - 14.5 06/17/2015 [facility] HEMATOLOGY Platelet 277 K/ CMM 133 - 450 06/17/2015 [facility] HEMATOLOGY WBC 8.6 K/CMM 3.7 - 10.4 06/17/2015 [facility] HEMATOLOGY Lymphocytes # 1.9 K/CMM 1.0 - 5.5 06/17/2015 [facility] HEMATOLOGY Eosinophils # 0.2 K/CMM 0.0 - 0.5 06/17/2015 [facility] HEMATOLOGY Monocytes # 0.7 K/ CMM 0.0 - 0.8 06/17/2015 [facility] HEMATOLOGY Segs 66.4 % 45.0 - 75.0 06/17/2015 [facility] HEMATOLOGY Segs-Bands # 5.7 K /CMM 1.5 - 8.1 06/17/2015 [facility] HEMATOLOGY Eosinophils 2.0 % 0.0 - 4.0 06/17/2015 [facility] HEMATOLOGY Basophils 0.7 % 0.0 - 1.0 06/17/2015 [facility] HEMATOLOGY Monocytes 8.4 % 2.0 - 12.0 06/17/2015 [facility] HEMATOLOGY Lymphocytes 22.5 % 20.0 - 40.0 06/17/2015 [facility] HEMATOLOGY Basophils # 0.1 K/ CMM 0.0 - 0.2 06/17/2015 [facility] CHEM PANEL eGFR 54 mL/min/ 1.73m2 05/12/2015 Result Comment: The eGFR is calculated using the CKD-EPI formula. In most young, healthy individuals the eGFR will be >90 mL/min/1.73m2. The eGFR declines with age. An eGFR of 60-89 may be normal in some populations, particularly the elderly, for whom the CKD- EPI formula has not been extensively validated. Use [...] should be multiplied by the estimated BMI. [facility] CHEM PANEL Bili Total 1.3 mg/ dL 0.2 - 1.3 05/12/2015 [facility] CHEM PANEL ALT 37 unit/L 0 - 65 05/12/2015 [facility] CHEM PANEL AST 42 unit/L 0 - 37 05/12/2015 [facility] CHEM PANEL Calcium Lvl 8.6 mg /dL 8.5 - 10.5 05/12/2015 [facility] CHEM PANEL Alk Phos 181 unit/ L 39 - 136 05/12/2015 [facility] CHEM PANEL Total Protein 8.0 g/dL 6.4 - 8.4 05/12/2015 [facility] CHEM PANEL Albumin Lvl 3.2 g/ dL 3.5 - 5.0 05/12/2015 [facility] CHEM PANEL CO2 22 meq/L 24 - 32 05/12/2015 [facility] CHEM PANEL Creatinine Lvl 1.21 mg/dL 0.50 - 1.40 2014 [facility] CHEM PANEL Sodium Lvl 132 meq /L 135 - 145 05/12/2015 [facility] CHEM PANEL Chloride Lvl 100 meq/L 95 - 109 05/12/2015 [facility] CHEM PANEL Potassium Lvl 4.6 meq/L 3.5 - 5.1 05/12/2015 Result Comment: Specimen Moderately Hemolyzed. [facility] CHEM PANEL BUN 21 mg/dL 7 - 22 05/12/2015 [facility] CHEM PANEL Glucose Lvl 104 mg /dL 70 - 99 05/12/2015 [facility] CHEM PANEL A/G Ratio 0.7 0.7 - 1.6 05/12/2015 [facility] CHEM PANEL Globulin 4.8 g/dL 2.0 - 4.0 05/12/2015 [facility] CHEM PANEL AGAP 14.6 meq/L 10.0 - 20.0 05/12/2015 [facility] CHEM PANEL B/C Ratio 17 6 - 25 05/12/2015 [facility] HEMATOLOGY Monocytes 13.8 % 2.0 - 12.0 05/12/2015 [facility] HEMATOLOGY Eosinophils 2.5 % 0.0 - 4.0 05/12/2015 [facility] HEMATOLOGY Segs 58.7 % 45.0 - 75.0 05/12/2015 [facility] HEMATOLOGY Lymphocytes 24.3 % 20.0 - 40.0 05/12/2015 [facility] HEMATOLOGY Eosinophils # 0.2 K/CMM 0.0 - 0.5 05/12/2015 [facility] HEMATOLOGY Lymphocytes # 1.6 K/CMM 1.0 - 5.5 05/12/2015 [facility] HEMATOLOGY Monocytes # 0.9 K/ CMM 0.0 - 0.8 05/12/2015 [facility] HEMATOLOGY Segs-Bands # 3.9 K /CMM 1.5 - 8.1 05/12/2015 [facility] HEMATOLOGY Basophils 0.7 % 0.0 - 1.0 05/12/2015 [facility] HEMATOLOGY MCHC 33.6 g/dL 32.0 - 36.0 05/12/2015 [facility] HEMATOLOGY RDW 13.4 % 11.5 - 14.5 05/12/2015 [facility] HEMATOLOGY MPV 8.8 fL 7.4 - 10.4 05/12/2015 [facility] HEMATOLOGY Platelet 235 K/ CMM 133 - 450 05/12/2015 [facility] HEMATOLOGY WBC 6.6 K/CMM 3.7 - 10.4 05/12/2015 [facility] HEMATOLOGY MCV 91.4 fL 80.0 - 94.0 05/12/2015 [facility] HEMATOLOGY MCH 30.7 pg 27.0 - 31.0 05/12/2015 [facility] HEMATOLOGY Hct 34.0 % 42.0 - 54.0 05/12/2015 [facility] HEMATOLOGY Hgb 11.4 g/dL 14.0 - 18.0 05/12/2015 [facility] HEMATOLOGY RBC 3.72 M/CMM 4.70 - 6.10 05/12/2015 [facility] ELECTROLYTES AGAP 13.9 meq/L 10.0 - 20.0 03/27/2015 [facility] ELECTROLYTES eGFR 77 mL/min/ 1.73m2 03/27/2015 Result Comment: The eGFR is calculated using the CKD-EPI formula. In most young, healthy individuals the eGFR will be >90 mL/min/1.73m2. The eGFR declines with age. An eGFR of 60-89 may be normal in some populations, particularly the elderly, for whom the CKD- EPI formula has not been extensively validated. Use [...] should be multiplied by the estimated BMI. [facility] ELECTROLYTES CO2 24 meq/L 24 - 32 03/27/2015 [facility] ELECTROLYTES Calcium Lvl 8.9 mg/dL 8.5 - 10.5 03/27/2015 [facility] ELECTROLYTES Chloride Lvl 107 meq/L 95 - 109 2014 [facility] ELECTROLYTES Glucose Lvl 79 mg/dL 70 - 99 03/27/2015 [facility] ELECTROLYTES BUN 12 mg/dL 7 - 22 03/27/2015 [facility] ELECTROLYTES Potassium Lvl 3.9 meq/L 3.5 - 5.1 2014 [facility] ELECTROLYTES Sodium Lvl 141 meq/L 135 - 145 03/27/2015 [facility] ELECTROLYTES Creatinine Lvl 0.9 mg/dL 0.5 - 1.4 2014 [facility] HEMATOLOGY MCH 31.5 pg 27.0 - 31.0 03/27/2015 [facility] HEMATOLOGY RBC 3.97 M/CMM 4.70 - 6.10 03/27/2015 [facility] HEMATOLOGY MCV 91.4 fL 80.0 - 94.0 03/27/2015 [facility] HEMATOLOGY Hct 36.3 % 42.0 - 54.0 03/27/2015 [facility] HEMATOLOGY Hgb 12.5 g/dL 14.0 - 18.0 03/27/2015 [facility] HEMATOLOGY WBC 6.0 K/CMM 3.7 - 10.4 03/27/2015 [facility] HEMATOLOGY Platelet 200 K/ CMM 133 - 450 03/27/2015 [facility] HEMATOLOGY MPV 9.4 fL 7.4 - 10.4 03/27/2015 [facility] HEMATOLOGY RDW 12.5 % 11.5 - 14.5 03/27/2015 [facility] HEMATOLOGY MCHC 34.5 g/dL 32.0 - 36.0 03/27/2015 [facility] HEMATOLOGY Eosinophils # 0.1 K/CMM 0.0 - 0.5 03/27/2015 [facility] HEMATOLOGY Monocytes # 0.6 K/ CMM 0.0 - 0.8 03/27/2015 [facility] HEMATOLOGY Lymphocytes # 1.5 K/CMM 1.0 - 5.5 03/27/2015 [facility] HEMATOLOGY Basophils 0.5 % 0.0 - 1.0 03/27/2015 [facility] HEMATOLOGY Eosinophils 2.1 % 0.0 - 4.0 03/27/2015 [facility] HEMATOLOGY Segs-Bands # 3.7 K /CMM 1.5 - 8.1 03/27/2015 [facility] HEMATOLOGY Monocytes 9.7 % 2.0 - 12.0 03/27/2015 [facility] HEMATOLOGY Lymphocytes 25.4 % 20.0 - 40.0 03/27/2015 [facility] HEMATOLOGY Segs 62.3 % 45.0 - 75.0 03/27/2015 [facility] Lymphoscintigraphy NM Lymphoscintigraphy NM EXAM: NM BREAST LYMPHOSCINTIGRAPHY. INDICATION: Right foot melanoma. Presurgical evaluation of sentinel lymph node. TECHNIQUE: The skin over the affected foot is prepared under the standard fashion. 60 min after intradermal injections of 4 mCi Technetium-99m sulfur colloid divided in 4 dose at 4 sites surrounding the lesion, anterior and lateral transmission/emission images of the lower extremities were obtained. FINDINGS: There is evidence of lympho-migration from right foot to right inguinal region. Multiple foci of increased tracer uptake are seen in the right inguinal and the iliac region, consistent with lymph nodes. The lowest right inguinal lymph node is dominant and is likely the sentinel lymph node. IMPRESSION: Coggon lymph node is identified in the right lower inguinal region. 03/25/2015 - - Read by: Alex Bill MD Dictated Date/time: 03/25/15 16:21 Electronically Signed by: Alex Bill MD 03/25/15 16 :26 FINAL REPORT [facility] CHEM PANEL Globulin 3.3 g/dL 2.0 - 4.0 03/17/2015 [facility] CHEM PANEL A/G Ratio 1.2 0.7 - 1.6 03/17/2015 [facility] CHEM PANEL AGAP 12.9 meq/L 10.0 - 20.0 03/17/2015 [facility] CHEM PANEL B/C Ratio 12 6 - 25 03/17/2015 [facility] CHEM PANEL eGFR 63 mL/min/ 1.73m2 03/17/2015 Result Comment: The eGFR is calculated using the CKD-EPI formula. In most young, healthy individuals the eGFR will be >90 mL/min/1.73m2. The eGFR declines with age. An eGFR of 60-89 may be normal in some populations, particularly the elderly, for whom the CKD- EPI formula has not been extensively validated. Use [...] should be multiplied by the estimated BMI. [facility] CHEM PANEL Bili Total 0.5 mg/ dL 0.2 - 1.3 03/17/2015 [facility] CHEM PANEL Alk Phos 115 unit/ L 39 - 136 03/17/2015 [facility] CHEM PANEL Glucose Lvl 111 mg /dL 70 - 99 03/17/2015 [facility] CHEM PANEL BUN 13 mg/dL 7 - 22 03/17/2015 [facility] CHEM PANEL AST 8 unit/L 0 - 37 03/17/2015 [facility] CHEM PANEL CO2 28 meq/L 24 - 32 03/17/2015 [facility] CHEM PANEL Chloride Lvl 100 meq/L 95 - 109 03/17/2015 [facility] CHEM PANEL Potassium Lvl 4.9 meq/L 3.5 - 5.1 03/17/2015 [facility] CHEM PANEL Sodium Lvl 136 meq /L 135 - 145 03/17/2015 [facility] CHEM PANEL ALT 19 unit/L 0 - 65 03/17/2015 [facility] CHEM PANEL Albumin Lvl 3.8 g/ dL 3.5 - 5.0 03/17/2015 [facility] CHEM PANEL Total Protein 7.1 g/dL 6.4 - 8.4 03/17/2015 [facility] CHEM PANEL Creatinine Lvl 1.1 mg/dL 0.5 - 1.4 2014 [facility] CHEM PANEL Calcium Lvl 8.6 mg /dL 8.5 - 10.5 03/17/2015 [facility] HEMATOLOGY Lymphocytes 26.1 % 20.0 - 40.0 03/17/2015 [facility] HEMATOLOGY Monocytes 10.3 % 2.0 - 12.0 03/17/2015 [facility] HEMATOLOGY Segs 61.0 % 45.0 - 75.0 03/17/2015 [facility] HEMATOLOGY Monocytes # 0.6 K/ CMM 0.0 - 0.8 03/17/2015 [facility] HEMATOLOGY Eosinophils # 0.1 K/CMM 0.0 - 0.5 03/17/2015 [facility] HEMATOLOGY Basophils 0.3 % 0.0 - 1.0 03/17/2015 [facility] HEMATOLOGY Eosinophils 2.3 % 0.0 - 4.0 03/17/2015 [facility] HEMATOLOGY Lymphocytes # 1.6 K/CMM 1.0 - 5.5 03/17/2015 [facility] HEMATOLOGY Segs-Bands # 3.8 K /CMM 1.5 - 8.1 03/17/2015 [facility] HEMATOLOGY Platelet 222 K/ CMM 133 - 450 03/17/2015 [facility] HEMATOLOGY MCHC 33.3 g/dL 32.0 - 36.0 03/17/2015 [facility] HEMATOLOGY MCH 31.3 pg 27.0 - 31.0 03/17/2015 [facility] HEMATOLOGY MCV 94.0 fL 80.0 - 94.0 03/17/2015 [facility] HEMATOLOGY MPV 9.5 fL 7.4 - 10.4 03/17/2015 [facility] HEMATOLOGY RDW 12.8 % 11.5 - 14.5 03/17/2015 [facility] HEMATOLOGY RBC 4.37 M/CMM 4.70 - 6.10 03/17/2015 [facility] HEMATOLOGY Hgb 13.7 g/dL 14.0 - 18.0 03/17/2015 [facility] HEMATOLOGY Hct 41.1 % 42.0 - 54.0 03/17/2015 [facility] HEMATOLOGY WBC 6.2 K/CMM 3.7 - 10.4 03/17/2015 [facility] SPECIAL CHEMISTRY Hgb A1C 6.2 % <=5.6 % 03/17/[address] [facility] [address] Melanoma initial staging PET CT Melanoma initial staging PET/CT scan, Feb 05, 2015 02:30:02 PM . CLINICAL INDICATION: 85-year-old male with new diagnosis melanoma, initial staging. COMPARISON: None. TECHNIQUES: After intravenous administration of 13.41 mCi of F-18 FDG, one hour delayed PET /non-contrast CT scan from the skull to the toes was obtained. FINDINGS: PET: Mild focal FDG uptake in the right patella is likely degenerative in nature. No other abnormal area of increased tracer uptake is identified in the body. The rest of tracer distribution and metabolism throughout the body is physiologic. CT: The non-contrast CT part of the study demonstrate vascular calcifications in the thoracic and abdominal aorta and its descending branches. There are small subcentimeter subpleural nodules in the left upper lung anteriorly which do not demonstrate FDG uptake. Significant atelectasis and motion at the lung bases is noted and limits complete evaluation of the lungs. Degenerative disease in the axial spine is noted. The remaining major visualized organs show no evidence of additional metastatic sites including the bones. IMPRESSION: No evidence of active malignancy or metastatic disease. 02/05/2015 - - This report was dictated by a Worm Farmer/Fellow. I have personally reviewed the images as well as the Resident's interpretation and agree with the findings. Read by: Quita Hewitt MD Resident: Quita Hewitt MD Dictated Date/time: 02/05/15 16:19 Electronically Signed by: Dennise Isaac MD 02/05/15 17 :14 FINAL REPORT [facility] Vital Signs Vital Sign Value Date Comments Source Systolic (mm Hg) 130 2015 [facility] Diastolic (mm Hg) 67 2015 [facility] Respitory Rate 16 2015 [facility] Systolic (mm Hg) 134 2015 [facility] Diastolic (mm Hg) 63 2015 [facility] Respitory Rate 15 2015 [facility] Respitory Rate 15 2015 [facility] Systolic (mm Hg) 127 2015 [facility] Diastolic (mm Hg) 62 2015 [facility] Height 170.18 cm 05/01/2016 [facility] BMI Calculated 25.93 2015 [facility] Weight 75.091 05/01/2016 [facility] Temperature Oral (F) 98.1 F 06/22/2015 [facility] Respitory Rate 18 2015 [facility] Heart Rate 74 06/22/2015 [facility] Systolic (mm Hg) 128 2015 [facility] Diastolic (mm Hg) 59 2015 [facility] Temperature Oral (F) 97.9 F 06/22/2015 [facility] Systolic (mm Hg) 121 2015 [facility] Diastolic (mm Hg) 54 2015 [facility] Heart Rate 63 06/22/2015 [facility] Respitory Rate 18 2015 [facility] Heart Rate 62 06/22/2015 [facility] Temperature Oral (F) 97.9 F 06/22/2015 [facility] Systolic (mm Hg) 105 2015 [facility] Diastolic (mm Hg) 50 2015 [facility] Respitory Rate 18 2015 [facility] Weight 77.273 06/18/2015 [facility] BMI Calculated 27.5 2015 [facility] Height 167.64 cm 06/18/2015 [facility] Weight 77.273 06/17/2015 [facility] BMI Calculated 27.5 2015 [facility] Height 167.64 cm 06/17/2015 [facility] Heart Rate 53 05/13/2015 [facility] Temperature Oral (F) 97.5 F 05/13/2015 [facility] Systolic (mm Hg) 104 2014 [facility] Diastolic (mm Hg) 49 2014 [facility] Respitory Rate 18 2014 [facility] Temperature Oral (F) 97.8 F 05/13/2015 [facility] Heart Rate 65 05/13/2015 [facility] Systolic (mm Hg) 126 2014 [facility] Diastolic (mm Hg) 80 2014 [facility] Respitory Rate 18 2014 [facility] Heart Rate 62 05/13/2015 [facility] Respitory Rate 18 2014 [facility] Temperature Oral (F) 97.9 F 05/13/2015 [facility] Systolic (mm Hg) 104 2014 [facility] Diastolic (mm Hg) 53 2014 [facility] Weight 71.364 05/13/2015 [facility] BMI Calculated 27.87 2014 [facility] Height 160.02 cm 05/13/2015 [facility] Weight 63.636 05/12/2015 [facility] BMI Calculated 22.64 2014 [facility] Height 167.64 cm 05/12/2015 [facility] Respitory Rate 18 2014 [facility] Heart Rate 81 03/30/2015 [facility] Systolic (mm Hg) 158 2014 [facility] Diastolic (mm Hg) 74 2014 [facility] Temperature Oral (F) 98.0 F 03/30/2015 [facility] Heart Rate 61 03/30/2015 [facility] Respitory Rate 20 2014 [facility] Systolic (mm Hg) 167 2014 [facility] Diastolic (mm Hg) 68 2014 [facility] Temperature Oral (F) 97.8 F 03/30/2015 [facility] Systolic (mm Hg) 161 2014 [facility] Diastolic (mm Hg) 69 2014 [facility] Respitory Rate 18 2014 [facility] Temperature Oral (F) 97.9 F 03/30/2015 [facility] Heart Rate 60 03/30/2015 [facility] Height 152.4 cm 03/17/2015 [facility] BMI Calculated 31.7 2014 [facility] Weight 73.636 03/17/2015 [facility] Encounters Location Location Details Encounter Type Encounter Number Reason For Visit Attending Provider ADM Date DC Date Status Source [facility] Outpatient [id number] Victorianoterrence Elizalde 201401/21/2015 [facility] Outpatient [id number] Victoriano Tonio 201402/04/2015 [facility] [id number] Redd Irwin 02/0502/06/2015 [facility] Outpatient [id number] Henok Phillips III 03/25/2015 03/26/2015 [facility] Inpatient [id number] Henok Cornelia III 03/26/2015 03/30/2015 [facility] OBS Observation Patient [id number] Fela Stephen 08/201405/13/2015 [facility] Inpatient [id number] Fela Stephen 06/17/2015 06/23/2015 [facility] Day Surgery [id number] Carlos Alberto Ahumada 05/01/2016 05/02/2016 [facility] [id number] Alberto Hess 01/09/2017 [facility] [place] [facility] [id number] Alberto Hess 05/29/2017 [facility] Procedures Procedure Code Date Perfomer Comments Source Debridement [id number] [facility] Irrigation [id number] [facility] Operation [id number] [facility] Operation [id number] [facility] Debridement [id number] [facility] Irrigation [id number] [facility]
--- OUTSIDE RECORDS SUMMARY | 2018-03-14 06:09 | XMS REPORT | Summary of Care ---
Author Author [facility] Organization [facility] Address Unknown Phone Unavailable Encounter LYNETTE Wright(NEO) [id number] Date(s): 05/01/16 - 05/01/16 [facility] [address] [address]- Discharge Disposition: Home or Self Care Attending Physician: Carlos Alberto Ahumada MD Referring Physician: Carlos Alberto Ahumada MD Vital Signs 1 2 3 Most recent to oldest [Reference Range]: 170.18 cm (05/01/16 6:02 AM) Height 130/67 mmHg (05/01/16 12:15 PM) 134/63 mmHg (05/01/16 12:00 PM) 127/62 mmHg (05/01/16 11:45 AM) Blood Pressure [90-140/60-90 mmHg] 16 BRMIN (05/01/16 12:15 PM) 15 BRMIN (05/01/16 12:00 PM) 15 BRMIN (05/01/16 11:45 AM) Respiratory Rate [14-20 BRMIN] 75.091 kg (05/01/16 6:02 AM) Weight 25.93 m2 (05/01/16 6:02 AM) Body Mass Index Problem List Condition Effective Dates Status Health Status Informant BPH - Benign Active prostatic hypertrophy(Confirme d) Diabetes Active mellitus(Confirmed) Glaucoma(Confirmed) Active Hyperlipidemia(Confi Active rmed) Hypertension(Confirm Active ed) Melanoma Active foot(Confirmed) Reflux(Confirmed) Active Allergies, Adverse Reactions, Alerts Substance Reaction Severity Status NKDA Active Medications ANES acetaminophen 1,000 mg, 2 tab, Route: PO, Drug form: TAB, ONCE, Dosing Weight 75.091, kg, PRN Pain Score 1-3, Start date: 05/01/16 9:15:00 PHYSICIAN OFFICE NURSE, Duration: 1 doses or times, Stop date: Limited # of times Notes: Max acetaminophen 4000 mg/day (4 gm/day). (Same as: Tylenol Extra Strength) Start Date: 05/01/16 Stop Date: 05/02/16 Status: Discontinued ANES flumazenil 0.2 mg, 2 mL, Route: IVP, Drug form: INJ, PRN, Dosing Weight 75.091, kg, PRN Benzodiazepine Reversal, Initial dose, Start date: 05/01/16 9:15:00 PHYSICIAN OFFICE NURSE, Duration: 1 day, Stop date: 05/02/16 9:14:00 PHYSICIAN OFFICE NURSE Notes: (Same as: Romazicon) Start Date: 05/01/16 Stop Date: 05/02/16 Status: Discontinued ANES hydrALAZINE 10 mg, 0.5 mL, Route: IVP, Drug form: INJ, Q20Min, Dosing Weight 75.091, kg, PRN Elevated BP, Start date: 05/01/16 9:15:00 PHYSICIAN OFFICE NURSE, Duration: 2 doses or times, Stop date: Limited # of times Notes: (Same as: Apresoline)Push over 5 minutes Start Date: 05/01/16 Stop Date: 05/02/16 Status: Discontinued ANES naloxone 0.4 mg, 1 mL, Route: IVP, Drug form: INJ, Q2MIN, Dosing Weight 75.091, kg, PRN Narcotic Reversal, Start date: 05/01/16 9:15:00 PHYSICIAN OFFICE NURSE, Duration: 8 doses or times , Stop date: 05/02/16 0:00:00 PHYSICIAN OFFICE NURSE Notes: Same as Narcan Start Date: 05/01/16 Stop Date: 05/02/16 Status: Completed ANES ondansetron 4 mg, 2 mL, Route: IVP, Drug form: INJ, ONCE, Dosing Weight 75.091, kg, PRN Nausea & Vomiting, Start date: 05/01/16 9:15:00 PHYSICIAN OFFICE NURSE Notes: (Same as: Laura) MEDICATION WASTE Product Size: 4 mgProduct Wasted: ___ mg Start Date: 05/01/16 Stop Date: 05/02/16 Status: Discontinued aspirin 81 mg, Route: PO, Drug form: ECTAB, ONCE, Dosing Weight 75.091, kg, Start date: 05/01/16 10:10:00 PHYSICIAN OFFICE NURSE, Stop date: 05/01/16 10:10:00 PHYSICIAN OFFICE NURSE Start Date: 05/01/16 Stop Date: 05/01/16 Status: Completed aspirin 81 mg tablet, enteric coated 81 mg=1 tab, PO, Daily, # 90 tab, 3 Refill(s) Start Date: 05/01/16 Status: Ordered ceFAZolin (ANES) Route: IV, Drug form: INJ, ONCE, Stop date: 05/01/16 8:33:00 PHYSICIAN OFFICE NURSE Start Date: 05/01/16 Stop Date: 05/01/16 Status: Completed dexmedetomidine (ANES) (ANES) Route: IV, Drug form: INJ, Start date: 05/01/16 7:37:00 PHYSICIAN OFFICE NURSE, Stop date: 8:37:00 PHYSICIAN OFFICE NURSE Start Date: 05/01/16 Stop Date: 05/01/16 Status: Completed fentaNYL (ANES) Route: IV, Drug form: INJ, ONCE, Stop date: 05/01/16 8:33:00 PHYSICIAN OFFICE NURSE Start Date: 05/01/16 Stop Date: 05/01/16 Status: Completed ferrous gluconate 256 mg (28 mg elemental iron) oral tablet 256 mg=1 tab, PO, Daily, 0 Refill(s) Start Date: 05/01/16 Status: Ordered fexofenadine 180 mg oral tablet 180 mg=1 tab, PO, Daily, 0 Refill(s) Start Date: 05/01/16 Status: Ordered heparin (ANES) Route: IV, Drug form: INJ, ONCE, Stop date: 05/01/16 8:48:00 PHYSICIAN OFFICE NURSE Start Date: 05/01/16 Stop Date: 05/01/16 Status: Completed Isolyte S (PH 7.4) 1000 mL (ANES) Route: IV, Total Volume: 1,000, Start date: 05/01/16 7:35:00 PHYSICIAN OFFICE NURSE, Stop date: 8:35:00 PHYSICIAN OFFICE NURSE Start Date: 05/01/16 Stop Date: 05/01/16 Status: Completed Myrbetriq 50 mg oral tablet, extended release 50 mg=1 tab, PO, Daily, # 30 tab, 0 Refill(s) Start Date: 05/01/16 Status: Ordered naproxen 375 mg oral enteric coated delayed-release tablet 375 mg=1 tab, PO, BID, PRN, 0 Refill(s) Start Date: 05/01/16 Status: Ordered oxybutynin 5 mg oral tablet 5 mg=1 tab, PO, TID, 0 Refill(s) Start Date: 05/01/16 Status: Ordered propofol (ANES) Route: IV, Drug form: INJ, ONCE, Stop date: 05/01/16 8:33:00 PHYSICIAN OFFICE NURSE Start Date: 05/01/16 Stop Date: 05/01/16 Status: Completed protamine (ANES) Route: IV, Drug form: INJ, ONCE, Stop date: 05/01/16 9:54:00 PHYSICIAN OFFICE NURSE Start Date: 05/01/16 Stop Date: 05/01/16 Status: Completed sodium chloride 0.9% 1000 ml INJ 1,000 mL 1,000 mL, Rate: 10 cc/hrTitrate, Dosing Weight 75.091, kg, Route: IV, Total Volume: 1,000, Start Date: 05/01/16 6:05:00 PHYSICIAN OFFICE NURSE, Duration: 30 day, Stop date: 6:04:00 PHYSICIAN OFFICE NURSE, Replace Every: 24 hr Start Date: 05/01/16 Stop Date: 05/02/16 Status: Discontinued sodium chloride 0.9% 1000 ml INJ 1,000 mL 1,000 mL, Rate: 125 ml/hr, Infuse over: 8 hr, Route: IV, Dosing Weight 75.091 kg , Total Volume: 1,000, Start date: 05/01/16 9:15:00 PHYSICIAN OFFICE NURSE, Duration: 30 day, Stop date: 05/31/16 9:14:00 PHYSICIAN OFFICE NURSE Start Date: 05/01/16 Stop Date: 05/02/16 Status: Discontinued Ultram 50 mg oral tablet 50 mg=1 tab, PO, Q4H, PRN pain, X 3 day, # 20 tab, 0 Refill(s) Start Date: 05/01/16 Stop Date: 05/04/16 Status: Ordered Results BLOOD BANK RESULTS Most recent to 1 oldest [Reference Range]: ABO/Rh O POS *Unknown* (05/01/16 6:27 AM) Antibody Scrn Negative (05/01/16 6:27 AM) ELECTROLYTES Most recent to 1 oldest [Reference Range]: Sodium Lvl [135-145 140 mEq/L mEq/L] (05/01/16 6:27 AM) Potassium Lvl 3.9 mEq/L [3.5-5.1 mEq/L] (05/01/16 6:27 AM) Chloride Lvl [95-109 103 mEq/L mEq/L] (05/01/16 6:27 AM) CO2 [24-32 mEq/L] 30 mEq/L (05/01/16 6:27 AM) AGAP [10.0-20.0 10.9 mEq/L mEq/L] (05/01/16 6:27 AM) CHEM PANEL Most recent to 1 oldest [Reference Range]: Creatinine Lvl 1.13 mg/dL [0.50-1.40 mg/dL] (05/01/16 6:27 AM) eGFR 58 mL/min/1.73m2 1 *NA* (05/01/16:27 AM) BUN [7-22 mg/dL] 15 mg/dL (05/01/16 6:27 AM) B/C Ratio [6-25] 13 (05/01/16 6:27 AM) Glucose Lvl [70-99 122 mg/dL mg/dL] *HI* (05/01/16 6:27 AM) Total Protein 7.3 g/dL [6.4-8.4 g/dL] (05/01/16 6:27 AM) Albumin Lvl [3.5-5.0 3.7 g/dL g/dL] (05/01/16 6:27 AM) Globulin [2.7-4.2 3.6 g/dL g/dL] (05/01/16 6:27 AM) A/G Ratio [0.7-1.6] 1.0 (05/01/16 6:27 AM) Calcium Lvl 8.7 mg/dL [8.5-10.5 mg/dL] (05/01/16 6:27 AM) ALT [0-65 unit/L] 13 unit/L (05/01/16 6:27 AM) AST [0-37 unit/L] 10 unit/L (05/01/16 6:27 AM) Alk Phos [39-136 116 unit/L unit/L] (05/01/16 6:27 AM) Bili Total [0.2-1.3 0.3 mg/dL mg/dL] (05/01/16 6:27 AM) 1Result Comment: The eGFR is calculated [...] BMI. SPECIAL CHEMISTRY Most recent to 1 oldest [Reference Range]: Hgb A1C [<=5.6 %] 5.9 % *HI* (05/01/16 6:27 AM) HEMATOLOGY Most recent to 1 oldest [Reference Range]: WBC [3.7-10.4 K/CMM] 6.0 K/CMM (05/01/16 6:27 AM) RBC [4.70-6.10 3.87 M/CMM M/CMM] *LOW* (05/01/16 6:27 AM) Hgb [14.0-18.0 g/dL] 11.5 g/dL *LOW* (05/01/16 6:27 AM) Hct [42.0-54.0 %] 34.6 % *LOW* (05/01/16 6:27 AM) MCV [80.0-94.0 fL] 89.4 fL (05/01/16 6:27 AM) MCH [27.0-31.0 pg] 29.7 pg (05/01/16 6:27 AM) MCHC [32.0-36.0 33.2 g/dL g/dL] (05/01/16 6:27 AM) RDW [11.5-14.5 %] 13.6 % (05/01/16 6:27 AM) Platelet [133-450 203 K/CMM K/CMM] (05/01/16 6:27 AM) MPV [7.4-10.4 fL] 8.6 fL (05/01/16 6:27 AM) Segs [45.0-75.0 %] 46.5 % (05/01/16 6:27 AM) Lymphocytes 41.2 % [20.0-40.0 %] *HI* (05/01/16 6:27 AM) Monocytes [2.0-12.0 8.5 % %] (05/01/16 6:27 AM) Eosinophils [0.0-4.0 3.0 % %] (05/01/16 6:27 AM) Basophils [0.0-1.0 0.8 % %] (05/01/16 6:27 AM) Segs-Bands # 2.8 K/CMM [1.5-8.1 K/CMM] (05/01/16 6:27 AM) Lymphocytes # 2.5 K/CMM [1.0-5.5 K/CMM] (05/01/16 6:27 AM) Monocytes # [0.0-0.8 0.5 K/CMM K/CMM] (05/01/16 6:27 AM) Eosinophils # 0.2 K/CMM [0.0-0.5 K/CMM] (05/01/16 6:27 AM) PT [12.0-14.7 15.2 seconds seconds] *HI* (05/01/16 6:27 AM) INR [0.85-1.17] 1.18 *HI* (05/01/16 6:27 AM) PTT [22.9-35.8 34.8 seconds seconds] (05/01/16 6:27 AM) Immunizations No data available for this [...]
--- OUTSIDE RECORDS SUMMARY | 2018-03-14 06:09 | XMS REPORT | Summary of Care ---
Author Author [facility] Organization [facility] Address Unknown Phone Unavailable Encounter LYNETTE Wright(NEO) [id number] Date(s): 06/17/15 - 06/22/15 [facility] [address] [facility] provided by [employer] [facility] [place] [address]- Discharge Disposition: Home Attending Physician: Fela Stephen MD Admitting Physician: Fela Stephen MD Referring Physician: Fela Stephen MD Vital Signs 1 2 3 Most recent to oldest [Reference Range]: 167.64 cm (06/17/15 6:41 PM) 167.64 cm (06/17/15 7:57 AM) Height 98.1 DegF (06/22/15 4:33 PM) 97.9 DegF (06/22/15 11:45 AM) 97.9 DegF (06/22/15 8:08 AM) Temperature Oral [96.4-99.1 DegF] 128/59 mmHg (06/22/15 4:33 PM) 121/54 mmHg (06/22/15 11:45 AM) 105/50 mmHg (06/22/15 8:08 AM) Blood Pressure [90-140/60-90 mmHg] 18 BRMIN (06/22/15 4:33 PM) 18 BRMIN (06/22/15 11:45 AM) 18 BRMIN (06/22/15 8:08 AM) Respiratory Rate [14-20 BRMIN] 74 bpm (06/22/15 4:33 PM) 63 bpm (06/22/15 11:45 AM) 62 bpm (06/22/15 8:08 AM) Peripheral Pulse Rate [60-100 bpm] 77.273 kg (06/17/15 6:41 PM) 77.273 kg (06/17/15 7:57 AM) Weight 27.5 m2 (06/17/15 6:41 PM) 27.5 m2 (06/17/15 7:57 AM) Body Mass Index Problem List Condition Effective Dates Status Health Status Informant BPH - Benign Active prostatic hypertrophy(Confirme d) Diabetes Active mellitus(Confirmed) Glaucoma(Confirmed) Active Hyperlipidemia(Confi Active rmed) Hypertension(Confirm Active ed) Melanoma Active foot(Confirmed) Reflux(Confirmed) Active Allergies, Adverse Reactions, Alerts Substance Reaction Severity Status NKDA Active Medications acetaminophen 1,000 mg, 2 tab, Route: PO, Drug form: TAB, Q6Hnow, Dosing Weight 77.273, kg, Start date: 06/17/15 14:00:00, Duration: 30 day, Stop date: 07/17/15 8:00:00 Notes: Max acetaminophen 4000 mg/day (4 gm/day). (Same as: Tylenol Extra Strength) Start Date: 06/17/15 Stop Date: 06/18/15 Status: Discontinued Ancef + Sodium Chloride 0.9% IV 100 mL 2 gm, Route: IVPB, ABXQ8H, Dosing Weight 77.273, kg, Start date: 06/21/15 10:00: 00, Duration: 30 day, Stop date: 07/21/15 2:00:00 Notes: (Same As: Ancef Kefzol) MEDICATION WASTE Product Size: 1000 mgProduct Wasted: ___ mg Start Date: 06/21/15 Stop Date: 06/22/15 Status: Discontinued bisacodyl 10 mg, 1 supp, Route: IN, Drug form: SUPP, ONCE, Dosing Weight 77.273, kg, Start date: 06/20/15 14:00:00, Stop date: 06/20/15 14:00:00 Notes: (Same As: Dulcolax, Bisco-Lax) Start Date: 06/20/15 Stop Date: 06/20/15 Status: Completed ceFAZolin 2 gm, 100 mL, Route: IVPB, Drug form: INJ, PRE OP, Start date: 06/17/15 5:00:00 , Duration: 1 day, Stop date: 06/18/15 4:59:00 Notes: Same as: Ancef Start Date: 06/17/15 Stop Date: 06/17/15 Status: Completed Cipro 500 mg oral tablet 500 mg=1 tab, PO, Q12H, for UTI, # 6 tab, 0 Refill(s) Start Date: 06/17/15 Stop Date: 06/22/15 Status: Discontinued ciprofloxacin 500 mg oral tablet 500 mg=1 tab, PO, Q12H, X 5 day, # 10 tab, 0 Refill(s) Start Date: 06/22/15 Stop Date: 06/27/15 Status: Ordered Colace 100 mg oral capsule 100 mg=1 cap, PO, BID, # 20 cap, 0 Refill(s) Start Date: 06/22/15 Stop Date: 07/02/15 Status: Ordered Colace 100 mg oral capsule 100 mg, 1 cap, Route: PO, Drug form: CAP, BID, Dosing Weight 77.273, kg, Start date: 06/17/15 17:00:00, Duration: 30 day, Stop date: 07/17/15 9:00:00 Notes: (Same as: Colace) (Do Not Crush) Start Date: 06/17/15 Stop Date: 06/22/15 Status: Discontinued cyanocobalamin 100 microgram, 1 tab, Route: PO, Drug form: TAB, Daily, Dosing Weight 77.273, kg , Start date: 06/18/15 9:00:00, Duration: 30 day, Stop date: 07/17/15 9:00:00 Notes: (Same As: Vitamin B12) Start Date: 06/18/15 Stop Date: 06/22/15 Status: Discontinued dexamethasone 4 mg, Route: IVP, ONCE, Dosing Weight 77.273, kg, PRN Nausea & Vomiting, Start date: 06/17/15 10:23:00 Start Date: 06/17/15 Stop Date: 06/17/15 Status: Discontinued Dextrose 50% Syringe 12.5 gm, 25 mL, Route: IVP, Drug Form: INJ, Dosing Weight 77.273, kg, PRN, PRN Blood Glucose Results, Start date: 06/20/15 12:21:00, Duration: 30 day, Stop date: 07/20/15 12:20:00 Start Date: 06/20/15 Stop Date: 06/22/15 Status: Discontinued Dextrose 50% Syringe 25 gm, 50 mL, Route: IVP, Drug Form: INJ, Dosing Weight 77.273, kg, PRN, PRN Blood Glucose Results, Start date: 06/20/15 12:21:00, Duration: 30 day, Stop date: 07/20/15 12:20:00 Start Date: 06/20/15 Stop Date: 06/22/15 Status: Discontinued Dilaudid 0.2 mg, 0.1 mL, Route: IV, Drug form: INJ, Q3H, Dosing Weight 77.273, kg, PRN Pain Score 7-10, Start date: 06/17/15 11:43:00, Duration: 30 day, Stop date: 11/24 11:42:00 Notes: Same as: Dilaudid Start Date: 06/17/15 Stop Date: 06/18/15 Status: Discontinued enoxaparin 40 mg, 0.4 mL, Route: SUB-Q, Drug form: INJ, [id number], Dosing Weight 77.273, kg , Start date: 06/17/15 15:00:00, Duration: 30 day, Stop date: 07/16/15 15:00:00 Notes: (Same as: Lovenox) Start Date: 06/17/15 Stop Date: 06/22/15 Status: Discontinued fentaNYL 25 microgram, Route: IVP, Q5Min, Dosing Weight 77.273, kg, PRN Pain Score 4-6, Start date: 06/17/15 10:23:00, Duration: 4 doses or times, Stop date: Limited # of times Start Date: 06/17/15 Stop Date: 06/17/15 Status: Discontinued flumazenil 0.2 mg, Route: IVP, PRN, Dosing Weight 77.273, kg, PRN Benzodiazepine Reversal, Initial dose, Start date: 06/17/15 10:23:00, Duration: 30 day, Stop date: 10:22:00 Start Date: 06/17/15 Stop Date: 06/17/15 Status: Discontinued gabapentin 100 mg oral capsule 100 mg, 1 cap, Route: PO, Drug form: CAP, Q8Hnow, Dosing Weight 77.273, kg, Start date: 06/18/15 11:00:00, Duration: 30 day, Stop date: 07/18/15 8:00:00 Notes: (Same as: Neurontin) Start Date: 06/18/15 Stop Date: 06/22/15 Status: Discontinued gabapentin 100 mg oral capsule 100 mg=1 cap, PO, Q8Hnow, # 90 cap, 0 Refill(s) Start Date: 06/22/15 Stop Date: 07/22/15 Status: Ordered GI cocktail 30 ml, Route: PO, Drug Form: SUSP, Dosing Weight 77.273, kg, ONCE, Routine, Start date: 06/21/15 14:40:00, Stop date: 06/21/15 14:40:00 Notes: G.I. Cocktail=antacid with simethicone 22.5 mL - lidocaine viscous 7.5 mL Start Date: 06/21/15 Stop Date: 06/21/15 Status: Deleted GI cocktail 30 ml, Route: PO, Drug Form: SUSP, Dosing Weight 77.273, kg, ONCE, Routine, Start date: 06/21/15 17:00:00, Stop date: 06/21/15 17:00:00 Notes: G.I. Cocktail=antacid with simethicone 22.5 mL - lidocaine viscous 7.5 mL Start Date: 06/21/15 Stop Date: 06/21/15 Status: Completed glucagon 1 mg, Route: IM, Drug form: PDR/INJ, PRN, Dosing Weight 77.273, kg, PRN Blood Glucose Results, Start date: 06/20/15 12:21:00, Duration: 30 day, Stop date: 02/24 12:20:00 Start Date: 06/20/15 Stop Date: 06/22/15 Status: Discontinued hydrALAZINE 10 mg, Route: IVP, Q20Min, Dosing Weight 77.273, kg, PRN Elevated BP, Start date : 06/17/15 10:23:00, Duration: 2 doses or times, Stop date: Limited # of times Start Date: 06/17/15 Stop Date: 06/17/15 Status: Discontinued ibuprofen 600 mg, Route: PO, Drug form: TAB, Q6H, Dosing Weight 77.273, kg, PRN Pain Score 1-3, Start date: 06/17/15 10:23:00, Duration: 30 day, Stop date: 07/17/15 10:22:00 Start Date: 06/17/15 Stop Date: 06/17/15 Status: Discontinued Insulin regular 1 unit, 0.01 mL, Route: SUB-Q, Drug form: SOLN, TID-Before Meals, Dosing Weight 77.273, kg, PRN Blood Glucose Results, Start date: 06/20/15 12:21:00, Duration: 30 day, Stop date: 07/20/15 12:20:00 Notes: (Same as: Humulin R) Roll in palms of hands gently; Do not shake vigorously. "single patient use only"(Restricted to patients requiring a dose > 60 units) Stable for 28 days at room temperatureExpires in days from _ Date Start Date: 06/20/15 Stop Date: 06/22/15 Status: Discontinued Insulin regular 2 unit, 0.02 mL, Route: SUB-Q, Drug form: SOLN, TID-Before Meals, Dosing Weight 77.273, kg, PRN Blood Glucose Results, Start date: 06/20/15 12:21:00, Duration: 30 day, Stop date: 07/20/15 12:20:00 Notes: (Same as: Humulin R) Roll in palms of hands gently; Do not shake vigorously. "single patient use only"(Restricted to patients requiring a dose > 60 units) Stable for 28 days at room temperatureExpires in days from _ Date Start Date: 06/20/15 Stop Date: 06/22/15 Status: Discontinued Insulin regular 5 unit, 0.05 mL, Route: SUB-Q, Drug form: SOLN, TID-Before Meals, Dosing Weight 77.273, kg, PRN Blood Glucose Results, Start date: 06/20/15 12:21:00, Duration: 30 day, Stop date: 07/20/15 12:20:00 Notes: (Same as: Humulin R) Roll in palms of hands gently; Do not shake vigorously. "single patient use only"(Restricted to patients requiring a dose > 60 units) Stable for 28 days at room temperatureExpires in days from _ Date Start Date: 06/20/15 Stop Date: 06/22/15 Status: Discontinued Insulin regular 4 unit, 0.04 mL, Route: SUB-Q, Drug form: SOLN, TID-Before Meals, Dosing Weight 77.273, kg, PRN Blood Glucose Results, Start date: 06/20/15 12:21:00, Duration: 30 day, Stop date: 07/20/15 12:20:00 Notes: (Same as: Humulin R) Roll in palms of hands gently; Do not shake vigorously. "single patient use only"(Restricted to patients requiring a dose > 60 units) Stable for 28 days at room temperatureExpires in days from _ Date Start Date: 06/20/15 Stop Date: 06/22/15 Status: Discontinued Insulin regular 3 unit, 0.03 mL, Route: SUB-Q, Drug form: SOLN, TID-Before Meals, Dosing Weight 77.273, kg, PRN Blood Glucose Results, Start date: 06/20/15 12:21:00, Duration: 30 day, Stop date: 07/20/15 12:20:00 Notes: (Same as: Humulin R) Roll in palms of hands gently; Do not shake vigorously. "single patient use only"(Restricted to patients requiring a dose > 60 units) Stable for 28 days at room temperatureExpires in days from _ Date Start Date: 06/20/15 Stop Date: 06/22/15 Status: Discontinued latanoprost ophthalmic 0.005% solution 1 drp, Route: BOTH EYES, Bedtime, Drug form: SOLN, Start date: 06/17/15 21:00:00 , Duration: 30 day, Stop date: 07/16/15 21:00:00 Notes: Keep refrigerated. (Same as:Xalatan) Start Date: 06/17/15 Stop Date: 06/22/15 Status: Discontinued Lipitor 10 mg, 1 tab, Route: PO, Drug form: TAB, Bedtime, Start date: 06/17/15 21:00:00 , Duration: 30 day, Stop date: 07/16/15 21:00:00 Notes: (Same As: Lipitor) Start Date: 06/17/15 Stop Date: 06/22/15 Status: Discontinued losartan 50 mg, 1 tab, Route: PO, Drug form: TAB, Daily, Dosing Weight 77.273, kg, Start date: 06/18/15 9:00:00, Duration: 30 day, Stop date: 07/17/15 9:00:00 Notes: (Same as: Cozaar) Start Date: 06/18/15 Stop Date: 06/22/15 Status: Discontinued lovastatin 10 mg, Route: PO, Drug form: TAB, Bedtime, Dosing Weight 77.273, kg, Start date : 06/17/15 21:00:00, Duration: 30 day, Stop date: 07/16/15 21:00:00 Start Date: 06/17/15 Stop Date: 06/17/15 Status: Deleted metFORMIN 500 mg oral tablet 500 mg, 1 tab, Route: PO, Drug form: TAB, Daily, Dosing Weight 77.273, kg, Start date: 06/18/15 9:00:00, Duration: 30 day, Stop date: 07/17/15 9:00:00 Notes: (Same as: Glucophage) Take with meal Start Date: 06/18/15 Stop Date: 06/22/15 Status: Discontinued metoprolol 1 mg, Route: IVP, Q5Min, Dosing Weight 77.273, kg, PRN Other -See Comment, Start date: 06/17/15 10:23:00, Duration: 5 doses or times, Stop date: Limited # of times Start Date: 06/17/15 Stop Date: 06/17/15 Status: Discontinued MiraLax 17 gm, 1 pkt, Route: PO, Drug form: PWDR, Daily, Dosing Weight 77.273, kg, Start date: 06/21/15 9:00:00, Duration: 30 day, Stop date: 07/20/15 9:00:00 Notes: Dissolve in 8 oz of water or juice.(Same as: Miralax) Start Date: 06/21/15 Stop Date: 06/22/15 Status: Discontinued multivitamin with iron 1 tab, Route: PO, Drug Form: TAB, Dosing Weight 77.273, kg, Daily, Start date: 06/18/15 9:00:00, Duration: 30 day, Stop date: 07/17/15 9:00:00 Notes: Same as Iron/C/B12/FA/SA Start Date: 06/18/15 Stop Date: 06/22/15 Status: Discontinued naloxone 0.04 mg, Route: IVP, Q2MIN, Dosing Weight 77.273, kg, PRN Narcotic Reversal, Start date: 06/17/15 10:23:00, Duration: 8 doses or times, Stop date: Limited # of times Start Date: 06/17/15 Stop Date: 06/17/15 Status: Discontinued Shelton 5/325 oral tablet 2 tab, Route: PO, Drug Form: TAB, Dosing Weight 77.273, kg, Q4H, PRN Pain Score 7-10, Start date: 06/18/15 11:11:00, Duration: 30 day, Stop date: 07/18/15 11:10 :00 Notes: (Same as: Shelton 325/5) Do not exceed 4gm/day of acetaminophen. Start Date: 06/18/15 Stop Date: 06/21/15 Status: Discontinued Shelton 5/325 oral tablet 1 tab, Route: PO, Drug Form: TAB, Dosing Weight 77.273, kg, Q4H, PRN Pain Score 4-6, Start date: 06/18/15 11:11:00, Duration: 30 day, Stop date: 07/18/15 11:10: 00 Notes: (Same as: Shelton 325/5) Do not exceed 4gm/day of acetaminophen. Start Date: 06/18/15 Stop Date: 06/21/15 Status: Discontinued Shelton 5/325 oral tablet 1 tab, Route: PO, Drug Form: TAB, Dosing Weight 77.273, kg, Q6H, PRN Pain Score 4-6, Start date: 06/17/15 11:41:00, Duration: 30 day, Stop date: 07/17/15 11:40: 00 Notes: (Same as: Shelton 325/5) Do not exceed 4gm/day of acetaminophen. Start Date: 06/17/15 Stop Date: 06/17/15 Status: Discontinued Ofirmev 1,000 mg, 100 mL, Route: IV, Drug form: INJ, PRE OP, Start date: 06/17/15 5:00: 00, Duration: 1 day, Stop date: 06/18/15 4:59:00 Notes: Infuse over 15 minutesDo not exceed 4gm/day of acetaminophen MEDICATION WASTE Product Size: 1000 mgProduct Wasted: ___ mg Start Date: 06/17/15 Stop Date: 06/18/15 Status: Discontinued omeprazole 20 mg, Route: PO, BID, Dosing Weight 77.273, kg, Start date: 06/18/15 9:00:00, Duration: 30 day, Stop date: 07/17/15 17:00:00 Start Date: 06/18/15 Stop Date: 06/17/15 Status: Deleted ondansetron 4 mg, Route: IVP, ONCE, Dosing Weight 77.273, kg, PRN Nausea & Vomiting, Start date: 06/17/15 10:23:00 Start Date: 06/17/15 Stop Date: 06/17/15 Status: Discontinued oxyCODONE 10 mg, Route: PO, Drug form: TAB, Q4H, Dosing Weight 77.273, kg, PRN Pain Score 7-10, Start date: 06/17/15 10:23:00, Duration: 30 day, Stop date: 07/17/15 10:22 :00 Start Date: 06/17/15 Stop Date: 06/17/15 Status: Discontinued oxyCODONE 5 mg, Route: PO, Drug form: TAB, Q4H, Dosing Weight 77.273, kg, PRN Pain Score 4 -6, Start date: 06/17/15 10:23:00, Duration: 30 day, Stop date: 07/17/15 10:22: 00 Start Date: 06/17/15 Stop Date: 06/17/15 Status: Discontinued oxyCODONE 5 mg immediate release 5 mg, 1 tab, Route: PO, Drug form: TAB, Q4H, Dosing Weight 77.273, kg, PRN Other -See Comment, Start date: 06/17/15 14:00:00, Duration: 30 day, Stop date: 07/17/15 13:59:00, Pain Score 4-10 Notes: (Same as: Roxicodone) Start Date: 06/17/15 Stop Date: 06/18/15 Status: Discontinued Paxil 10 mg, 1 tab, Route: PO, Drug form: TAB, Daily, Dosing Weight 77.273, kg, Start date: 06/18/15 9:00:00, Duration: 30 day, Stop date: 07/17/15 9:00:00 Notes: (Same as: Paxil) Start Date: 06/18/15 Stop Date: 06/22/15 Status: Discontinued Paxil 10 mg oral tablet 10 mg=1 tab, PO, Daily, # 30 tab, 0 Refill(s) Start Date: 06/17/15 Status: Ordered polyethylene glycol 3350 oral powder for reconstitution 17 gm, PO, Daily, X 7 day, # 12 ea, 0 Refill(s) Start Date: 06/22/15 Stop Date: 06/29/15 Status: Ordered Protonix 40 mg, 1 tab, Route: PO, Drug form: ECTAB, BID-Before Meals, Start date: 7:30:00, Duration: 30 day, Stop date: 07/17/15 16:30:00 Notes: Tablet should not be chewed or crushed.(Same as: Protonix) Start Date: 06/18/15 Stop Date: 06/22/15 Status: Discontinued scopolamine 1 patch, Route: TOP, Drug form: ERFILM, PRE OP, Start date: 06/17/15 5:00:00, Duration: 1 day, Stop date: 06/18/15 4:59:00 Notes: Change patch every 72 hours (Same as: Transderm-Scop) Start Date: 06/17/15 Stop Date: 06/22/15 Status: Discontinued tamsulosin 0.4 mg, 1 cap, Route: PO, Drug form: CAP, Daily, Dosing Weight 77.273, kg, Priority: NOW, Start date: 06/17/15 18:33:00, Duration: 30 day, Stop date: 07/17 21:00:00 Notes: (Same As: Flomax) "Do Not Crush" Start Date: 06/17/15 Stop Date: 06/22/15 Status: Discontinued tramadol 50 mg oral tablet 50 mg, 1 tab, Route: PO, Drug form: TAB, Q6H, Dosing Weight 77.273, kg, PRN Pain Score 1-3, Start date: 06/17/15 11:43:00, Duration: 30 day, Stop date: 11/24 11:42:00 Notes: Not to exceed 400mg/day. (Same As: Ultram) Start Date: 06/17/15 Stop Date: 06/22/15 Status: Discontinued tramadol 50 mg oral tablet 50 mg=1 tab, PO, Q6H, PRN Pain, # 40 tab, 0 Refill(s) Start Date: 06/17/15 Stop Date: 06/27/15 Status: Ordered Tylenol with Codeine #3 oral tablet 1 tab, PO, Q4H, PRN Pain Score 1-3, X 10 day, # 60 tab, 0 Refill(s) Start Date: 06/22/15 Stop Date: 07/02/15 Status: Ordered Tylenol with Codeine #3 oral tablet 2 tab, Route: PO, Drug Form: TAB, Dosing Weight 77.273, kg, Q6H, PRN Pain Score 4-6, Start date: 06/21/15 5:33:00, Duration: 30 day, Stop date: 07/21/15 5:32:00 Notes: Do not exceed 4gm/day of acetaminophen. (Same as: Tylenol with Codeine # 3) Start Date: 06/21/15 Stop Date: 06/22/15 Status: Discontinued Tylenol with Codeine #3 oral tablet 1 tab, Route: PO, Drug Form: TAB, Dosing Weight 77.273, kg, Q4H, PRN Pain Score 1-3, Start date: 06/21/15 5:33:00, Duration: 30 day, Stop date: 07/21/15 5:32:00 Notes: Do not exceed 4gm/day of acetaminophen. (Same as: Tylenol with Codeine # 3) Start Date: 06/21/15 Stop Date: 06/22/15 Status: Discontinued Zofran 4 mg, 2 mL, Route: IV, Drug form: INJ, Q8H, Dosing Weight 77.273, kg, PRN Nausea , Start date: 06/17/15 14:20:00, Duration: 30 day, Stop date: 07/17/15 14:19:00 Notes: (Same as: Zofran) MEDICATION WASTE Product Size: 4 mgProduct Wasted: ___ mg Start Date: 06/17/15 Stop Date: 06/22/15 Status: Discontinued Results ELECTROLYTES Most recent to 1 2 oldest [Reference Range]: Sodium Lvl [135-145 138 mEq/L 137 mEq/L mEq/L] (06/18/15 6:31 AM) (06/17/15 7:58 AM) Potassium Lvl 4.2 mEq/L 4.2 mEq/L [3.5-5.1 mEq/L] (06/18/15 6:31 AM) (06/17/15 7:58 AM) Chloride Lvl [95-109 104 mEq/L 102 mEq/L mEq/L] (06/18/15 6:31 AM) (06/17/15 7:58 AM) CO2 [24-32 mEq/L] 24 mEq/L 26 mEq/L (06/18/15 6:31 AM) (06/17/15 7:58 AM) AGAP [10.0-20.0 14.2 mEq/L 13.2 mEq/L mEq/L] (06/18/15 6:31 AM) (06/17/15 7:58 AM) CHEM PANEL Most recent to 1 2 oldest [Reference Range]: Creatinine Lvl 0.95 mg/dL 1.20 mg/dL [0.50-1.40 mg/dL] (06/18/15 6:31 AM) (06/17/15 7:58 AM) eGFR 72 mL/min/1.73m2 1 54 mL/min/1.73m2 2 *NA* *NA* (06/18/15 6:31 AM) (06/17/15 7:58 AM) BUN [7-22 mg/dL] 14 mg/dL 22 mg/dL (06/18/15 6:31 AM) (06/17/15 7:58 AM) B/C Ratio [6-25] 18 (06/17/15 7:58 AM) Glucose Lvl [70-99 82 mg/dL 123 mg/dL mg/dL] (06/18/15 6:31 AM) *HI* (06/17/15 7:58 AM) Total Protein 7.4 g/dL [6.4-8.4 g/dL] (06/17/15 7:58 AM) Albumin Lvl [3.5-5.0 2.8 g/dL g/dL] *LOW* (06/17/15 7:58 AM) Globulin [2.0-4.0 4.6 g/dL g/dL] *HI* (06/17/15 7:58 AM) A/G Ratio [0.7-1.6] 0.6 *LOW* (06/17/15 7:58 AM) Calcium Lvl 8.3 mg/dL 8.9 mg/dL [8.5-10.5 mg/dL] *LOW* (06/17/15 7:58 AM) (06/18/15 6:31 AM) Phosphorus [2.5-4.5 4.4 mg/dL mg/dL] (06/18/15 6:31 AM) Magnesium Lvl 2.1 mg/dL [1.8-2.4 mg/dL] (06/18/15 6:31 AM) ALT [0-65 unit/L] 29 unit/L (06/17/15 7:58 AM) AST [0-37 unit/L] 32 unit/L (06/17/15 7:58 AM) Alk Phos [39-136 204 unit/L unit/L] *HI* (06/17/15 7:58 AM) Bili Total [0.2-1.3 0.8 mg/dL mg/dL] (06/17/15 7:58 AM) 1Result Comment: The eGFR is calculated [...] should be multiplied by the estimated BMI. PARATHYROID PROFILE Most recent to 1 2 oldest [Reference Range]: Ca Ion WB [1.05-1.25 1.07 mMol/L mMol/L] (06/18/15 6:31 AM) Ca Norm WB 1.07 mMol/L [1.05-1.25 mMol/L] (06/18/15 6:31 AM) URINE AND STOOL Most recent to 1 2 oldest [Reference Range]: UA Turbidity [Clear] Clear (06/17/15 6:28 PM) UA Color [Yellow] Yellow *NA* (06/17/15 6:28 PM) UA pH [5.0-8.0] 6.0 (06/17/15 6:28 PM) UA Spec Grav 1.016 [<=1.030] (06/17/15 6:28 PM) UA Glucose [Negative Negative mg/dL mg/dL] *NA* (06/17/15 6:28 PM) UA Blood [Negative] Negative (06/17/15 6:28 PM) UA Ketones [Negative Negative mg/dL mg/dL] *NA* (06/17/15 6:28 PM) UA Protein [Negative 10 mg/dL mg/dL] *ABN* (06/17/15 6:28 PM) UA Urobilinogen <=1.0 mg/dL [0.1-1.0 mg/dL] *NA* (06/17/15 6:28 PM) UA Bili [Negative] Negative *NA* (06/17/15 6:28 PM) UA Leuk Est Negative [Negative] (06/17/15 6:28 PM) UA Nitrite Negative [Negative] (06/17/15 6:28 PM) UA WBC [0-5 /HPF] 3 /HPF (1/7/16 6:28 PM) UA RBC [0-2 /HPF] 1 /HPF (06/17/15 6:28 PM) UA Sq Epi None Seen *NA* (06/17/15 6:28 PM) UA Mucus [None Seen Few /LPF /LPF] *NA* (06/17/15 6:28 PM) HEMATOLOGY Most recent to 1 2 oldest [Reference Range]: WBC [3.7-10.4 K/CMM] 6.4 K/CMM 8.6 K/CMM (06/18/15 6:31 AM) (06/17/15 7:58 AM) RBC [4.70-6.10 3.06 M/CMM 3.57 M/CMM M/CMM] *LOW* *LOW* (06/18/15 6:31 AM) (06/17/15 7:58 AM) Hgb [14.0-18.0 g/dL] 9.2 g/dL 10.8 g/dL *LOW* *LOW* (06/18/15 6:31 AM) (06/17/15 7:58 AM) Hct [42.0-54.0 %] 28.0 % 33.0 % *LOW* *LOW* (06/18/15 6:31 AM) (06/17/15 7:58 AM) MCV [80.0-94.0 fL] 91.4 fL 92.5 fL (06/18/15 6:31 AM) (06/17/15 7:58 AM) MCH [27.0-31.0 pg] 29.9 pg 30.2 pg (06/18/15 6:31 AM) (06/17/15 7:58 AM) MCHC [32.0-36.0 32.7 g/dL 32.7 g/dL g/dL] (06/18/15 6:31 AM) (06/17/15 7:58 AM) RDW [11.5-14.5 %] 13.7 % 13.3 % (06/18/15 6:31 AM) (06/17/15 7:58 AM) Platelet [133-450 216 K/CMM 277 K/CMM K/CMM] (06/18/15 6:31 AM) (06/17/15 7:58 AM) MPV [7.4-10.4 fL] 8.3 fL 8.2 fL (06/18/15 6:31 AM) (06/17/15 7:58 AM) Segs [45.0-75.0 %] 64.2 % 66.4 % (06/18/15 6:31 AM) (06/17/15 7:58 AM) Lymphocytes 24.9 % 22.5 % [20.0-40.0 %] (06/18/15 6:31 AM) (06/17/15 7:58 AM) Monocytes [2.0-12.0 8.7 % 8.4 % %] (06/18/15 6:31 AM) (06/17/15 7:58 AM) Eosinophils [0.0-4.0 1.7 % 2.0 % %] (06/18/15 6:31 AM) (06/17/15 7:58 AM) Basophils [0.0-1.0 0.5 % 0.7 % %] (06/18/15 6:31 AM) (06/17/15 7:58 AM) Segs-Bands # 4.1 K/CMM 5.7 K/CMM [1.5-8.1 K/CMM] (06/18/15 6:31 AM) (06/17/15 7:58 AM) Lymphocytes # 1.6 K/CMM 1.9 K/CMM [1.0-5.5 K/CMM] (06/18/15 6:31 AM) (06/17/15 7:58 AM) Monocytes # [0.0-0.8 0.6 K/CMM 0.7 K/CMM K/CMM] (06/18/15 6:31 AM) (06/17/15 7:58 AM) Eosinophils # 0.1 K/CMM 0.2 K/CMM [0.0-0.5 K/CMM] (06/18/15 6:31 AM) (06/17/15 7:58 AM) Basophils # [0.0-0.2 0.1 K/CMM K/CMM] (06/17/15 7:58 AM) Immunizations No data available for this section Procedures Procedure Date Related Diagnosis Body Site Debridement Irrigation Operation Operation Social History Social History Type Response Smoking Status Never smoker; Exposure to Tobacco Smoke None; Cigarette Smoking Last 365 Days No; Reg Smoking Cessation Counseling No Assessment and Plan Extracted from: Title: Hospitalist Progress Note Author: Daltno Kramer MD Date: 06/22/15 Assessment/Plan 1.DM2 (diabetes mellitus, type 2), Diabetes metformin, SSI 2.Hypertension ARB 3.History of BPH flomax 4.Hyperlipemia statin 5.Melanoma s/p STSG 6.Acute pain well controlled 7.Moderate protein-calorie malnutrition Oral suppl Prophylaxis lovenox Disposition Home today [place] hospitalists consulting, pager [phone] Extracted from: Title: Hospitalist Consult Note Author: Beatriz Oconnor MD Date: 06/17/15 Assessment/Plan 1.Diabetes controlled on metformin, sliding scale low dose ok while inpt 2.Hypertension continue home medication losartan 3.History of BPH continue flomax and oxybutnin prn 4.Hyperlipemia continue statin 5.Melanoma per primary team 6.UTI symptoms obtain ua to [facility] pt on cipro as outpt Orders: UA with culture if indicated Prophylaxis per primary Disposition Hospitalist is primary please page [phone] with questions/concerns
== END | disposition home or self-care (01) ==
LOC: CATH LAB 09:18 → EDSTATUS 11:00
PROVIDERS: ATTEND Radiology Diagnostic Radiology
DX: R33.9 Retention of urine, unspecified (principal); N35.9 Urethral stricture, unspecified; N40.0 Benign prostatic hyperplasia without lower urinary tract symptoms; N13.5 Crossing vessel and stricture of ureter without hydronephrosis; I10 Essential (primary) hypertension; Z79.82 Long term (current) use of aspirin; Z79.84 Long term (current) use of oral hypoglycemic drugs
CPT/HCPCS: 51102; 76942; 77002; J0690; J2001; J2250; J7040